=== PATIENT | male | born 1960 | race American Indian/Alaskan Native ===

== ENCOUNTER 2019-09-13 10:42 | Observation (INO) | payer MEDICARE ==
[2019-09-13] MEDS ORDERED: MORPHINE 4 MG/1 ML INJ IV ONE (11:22)
[2019-09-13] MEDS ORDERED: ONDANSETRON 4 MG/2 ML INJ IV ONE (11:22)
[2019-09-13] MEDS ORDERED: SODIUM CHLORIDE 0.9% 1000 ML 1,000 ML IV ONE (11:22)
[2019-09-13] MEDS ORDERED: NITROGLYCERIN 0.4 MG TAB SUBL SL PRN (11:22)
--- NOTE | 2019-09-13 11:47 | XRay Report ---
CHEST 2 VIEWS INDICATION / CLINICAL INFORMATION: Chest Pain. COMPARISON: October 01, 2009. FINDINGS: SUPPORT DEVICES: There is a left jugular permacath with the tip overlying the distal SVC. There is a left parasternal ICD. HEART / MEDIASTINUM: There is mild to moderate generalized cardiomegaly. There is mild chronic promin ence of the central pulmonary vessels. The aorta is normal in caliber. LUNGS / PLEURA: No significant pulmonary or pleural abnormality. No pneumothorax. ADDITIONAL FINDINGS: No significant additional findings. IMPRESSION: No acute findings. Signer Name: Jonnie Xiao MD Signed: 09/13/2019 11:43 AM Workstation Name: [id number]
[2019-09-13 12:38] LABS: Basophils % (Auto) 0.7 % (0.0-1.8); Eosinophils % (Auto) 0.1 % (0.0-4.3); Hematocrit 36.6 % (35.5-45.6); Hemoglobin 11.9 gm/dl (11.8-15.2); Lymphocytes # (Auto) 0.5 K/mm3 (1.2-5.4); Lymphocytes % (Auto) 8.9 % (13.4-35.0); Mean Corpuscular HGB Conc 32 % (32-34); Mean Corpuscular Volume 96 fl (84-94); Monocytes # (Auto) 0.2 K/mm3 (0.0-0.8); Monocytes % (Auto) 4.2 % (0.0-7.3); Platelet Count 138 K/mm3 (140-440); Red Blood Count 3.82 M/mm3 (3.65-5.03); Red Cell Distribution Width 17.4 % (13.2-15.2)
[2019-09-13 12:48] LABS: INR 1.27 (0.87-1.13)
[2019-09-13 12:49] LABS: Partial Thromboplastin Time 37.7 Sec. (24.2-36.6)
--- NOTE | 2019-09-13 13:16 | Emergency Department Report ---
<VALERIEEDIL - Last Filed: 09/13/19 13:20> ED Chest Pain HPI - General Chief Complaint: Chest Pain Stated Complaint: CHEST PAIN Time Seen by Provider: 09/13/19 11:19 - Related Data Home Medications Medication Instructions Recorded Confirmed Last Taken Aspirin [Adult Aspirin] 81 mg PO QDAY 09/13/19 09/13/19 Unknown Torsemide [Demadex] 100 mg PO QDAY 09/13/19 09/13/19 Unknown Allergies Allergy/AdvReac Type Severity Reaction Status Date / Time No Known Allergies Allergy Verified 09/13/19 11:22 ED Past Medical Hx - Medications Home Medications: Home Medications Medication Instructions Recorded Confirmed Last Taken Type Aspirin [Adult Aspirin] 81 mg PO QDAY 09/13/19 09/13/19 Unknown History Torsemide [Demadex] 100 mg PO QDAY 09/13/19 09/13/19 Unknown History ED Medical Decision Making - Lab Data Result diagrams: 09/13/19 12:08 Laboratory Results - last 24 hr 09/13/19 09/13/19 09/13/19 12:08 12:08 12:08 WBC 5.3 RBC 3.82 Hgb 11.9 Hct 36.6 MCV 96 H MCH 31 MCHC 32 RDW 17.4 H Plt Count 138 L Lymph % (Auto) 8.9 L [place] % (Auto) 4.2 Eos % (Auto) 0.1 Baso % (Auto) 0.7 Lymph # 0.5 L [place] # 0.2 Eos # 0.0 Baso # 0.0 Seg Neutrophils % 86.1 H Seg Neutrophils # 4.5 PT 16.1 H INR 1.27 H APTT 37.7 H D-Dimer 1894.75 H Blood Type A POSITIVE ED Disposition Clinical Impression: Uncontrolled hypertension, Shortness of breath, End stage renal disease, Angina at rest Chest pain Qualifiers: Chest pain type: unspecified Qualified Code(s): R07.9 - Chest pain, unspecified CHF exacerbation Qualifiers: Heart failure type: unspecified Qualified Code(s): I50.9 - Heart failure, unspecified Disposition: OP ADMIT IP TO THIS HOSP Condition: Stable <PANCHITO SERVIN - Last Filed: 09/13/19 15:11> ED Chest Pain HPI - General Source: patient Mode of arrival: Stretcher Limitations: No Limitations - History of Present Illness Initial Comments: This is a 58-year-old male nontoxic, well nourished in appearance, no acute signs of distress presents to the ED with c/o of left sided chest pain with SOB. Stated pain radiates to left shoulder and back area. Describes pain as tightness and heaviness in chest. Patient denies any upper respiratory symptoms. Patient denies any hemoptysis, fever, chills, nausea, vomiting, headache, st iff neck, numbness, tingling, abdominal pain. Patient denies any recent travels or long car rides. Patient denies any recent surgeries or any sick contacts. Patient denies any drug allergies. Past medical history includes CHF, VT, and ESRD. MD Complaint: chest pain -: days(s) Pain Location: left chest Pain Radiation: LUE, back Severity: moderate Severity scale (0 -10): 8 Quality: tightness, heaviness Consistency: constant Improves With: nothing Worsens With: nothing re: dyspnea. denies: nausea, vomting, diaphoresis, sense of impending doom Other Symptoms: denies: cough, fever, syncope, rash, acid taste in mouth, leg swelling, palpitations, burping Heart Score - HEART Score History: Highly suspicious EKG: Non-specific Age: 45-65 Risk factors: > 3 risk factors or hx of atherosclerotic disease Troponin: > 3x normal limit HEART Score: 8 - Critical Actions Critical Actions: >7 pts:50-65% risk of adverse cardiac event. Early invasive measures ED Review of Systems ROS: Stated complaint: CHEST PAIN Other details as noted in HPI Constitutional: denies: chills, fever Eyes: denies: eye pain, eye discharge, vision change ENT: denies: ear pain, throat pain Respiratory: shortness of breath. denies: cough, wheezing Cardiovascular: chest pain. denies: palpitations Endocrine: no symptoms reported Gastrointestinal: denies: abdominal pain, nausea, diarrhea Genitourinary: denies: urgency, dysuria Musculoskeletal: denies: back pain, joint swelling, arthralgia Skin: denies: rash, lesions Neurological: denies: headache, weakness, paresthesias Psychiatric: denies: anxiety, depression Hematological/Lymphatic: denies: easy bleeding, easy bruising ED Past Medical Hx - Past Medical History Previous Medical History?: Yes Hx Hypertension: Yes Hx Heart Attack/AMI: Yes Hx Congestive Heart Failure: Yes Hx Renal Disease: Yes (Dialysis T, Th, Sat) Additional medical history: Pacemaker, - Surgical History Past Surgical History?: No - Social History Smoking Status: Current Every Day Smoker Substance Use Type: None ED Physical Exam - General Limitations: No Limitations General appearance: alert, in no apparent distress - Head Head exam: Present: atraumatic, normocephalic - Neck Neck exam: Present: normal inspection, full ROM - Respiratory Respiratory exam: Present: normal lung sounds bilaterally. Absent: respiratory distress, wheezes, rales, rhonchi, stridor, chest wall tenderness, accessory muscle use, decreased breath sounds, prolonged expiratory - Cardiovascular Cardiovascular Exam: Present: tachycardia - GI/Abdominal GI/Abdominal exam: Present: soft, normal bowel sounds. Absent: distended, tenderness, guarding, pulsatile mass - Extremities Exam Extremities exam: Present: full ROM - Back Exam Back exam: Present: full ROM - Neurological Exam Neurological exam: Present: alert, oriented X3 - Psychiatric Psychiatric exam: Present: normal affect, normal mood - Skin Skin exam: Present: warm, dry, intact, normal color. Absent: rash ED Course Vital Signs 09/13/19 09/13/19 09/13/19 10:55 11:00 11:04 Temperature 97.8 F Pulse Rate 92 H 90 92 H Respiratory 16 18 21 Rate Blood Pressure Blood Pressure 181/112 [Right] O2 Sat by Pulse 97 98 Oximetry 09/13/19 09/13/19 09/13/19 11:15 11:34 11:46 Temperature Pulse Rate 89 Respiratory 20 Rate Blood Pressure 175/114 175/114 175/114 Blood Pressure [Right] O2 Sat by Pulse 89 99 Oximetry 09/13/19 09/13/19 09/13/19 12:00 12:16 12:25 Temperature Pulse Rate Respiratory 20 Rate Blood Pressure 175/114 175/114 Blood Pressure [Right] O2 Sat by Pulse 100 98 Oximetry 09/13/19 09/13/19 09/13/19 12:30 12:46 12:55 Temperature Pulse Rate Respiratory 18 Rate Blood Pressure 175/114 175/114 Blood Pressure [Right] O2 Sat by Pulse 79 L 88 Oximetry 09/13/19 09/13/19 09/13/19 13:00 13:16 13:30 Temperature Pulse Rate Respiratory Rate Blood Pressure 175/114 175/114 175/114 Blood Pressure [Right] O2 Sat by Pulse 96 81 L 98 Oximetry 09/13/19 09/13/19 09/13/19 14:02 14:09 14:15 Temperature Pulse Rate 84 75 Respiratory 13 Rate Blood Pressure 175/114 160/104 141/97 Blood Pressure [Right] O2 Sat by Pulse 96 98 Oximetry 09/13/19 09/13/19 09/13/19 14:30 14:46 15:00 Temperature Pulse Rate 75 76 76 Respiratory 18 21 13 Rate Blood Pressure 133/93 134/83 142/94 Blood Pressure [Right] O2 Sat by Pulse 98 99 99 Oximetry - Reevaluation(s) Reevaluation #1: 09/13/19 13:15 Patient is speaking in full sentences with no signs of distress noted. - Consultations Consultation #1: 09/13/19 13:28 Patient has been consulted with Laith Petty about patient history, physical exam, and labs and agrees to ED plan of care with admission. BACILIO score - Bacilio Score Age > 65: (0) No Aspirin use within the Past 7 Days: (1) Yes 3 or more CAD Risk Factors: (1) Yes 2 or more Angina events in past 24 hrs: (1) Yes Known CAD with more than 50% Stenosis: (1) Yes Elevated Cardiac Markers: (0) No ST Deviation Greater than 0.5mm: (0) No BACILIO Score: 4 ED Medical Decision Making - Lab Data Result diagrams: 09/13/19 12:08 09/13/19 12:08 - Medical Decision Making This is a 58-year-old male that presents with chest pain and shortness of jani ath. Patient is currently stable and was examined by me and Dr. Walker. Labs obtained. CTA of chest has been obtained. Patient to be dialyzed later today due to contrast used for CTA. Patient is admitted with Dr. Gan (hospitalist). At time of admission, the patient does not seem toxic or ill in appearance. No acute signs of distress noted. Patient agrees to admission treatment plan of care. No further questions noted by the patient. - Differential Diagnosis PE, STEMI, NSTEMI, uncontrolledhypertension, pneumonia, atypical chest pain Critical care attestation.: If time is entered above; I have spent that time in minutes in the direct care of this critically ill patient, excluding procedure time. ED Disposition Is pt being admited?: Yes
--- NOTE | 2019-09-13 14:11 | Nuclear Medicine Report ---
V/Q Scan HISTORY: cp/sob. TECHNIQUE: Patient was given 5.5 mCi of technetium MAA and 17.9 mCi of xenon 133. COMPARISON: Chest x-ray from today FINDINGS: No appreciable mismatch between ventilation and perfusion imaging. IMPRESSION: Low probability for PTE. Signer Name: Paul Kingsley MD Signed: 09/13/2019 2:06 PM Workstation Name: [id number]
[2019-09-13 14:13] LABS: Albumin 4.3 g/dL (3.9-5); Calcium 9.6 mg/dL (8.4-10.2)
[2019-09-13 14:30] LABS: Chol/HDL Ratio 1.69 %
--- NOTE | 2019-09-13 15:49 | Consultation ---
History of Present Illness Consult date: 09/13/19 Consult reason: elevated troponin History of present illness: This is a 58-year old male with a history of coronary artery disease, ischemic cardiomyopathy and has an subcutaneous cardiac defibrillator. Patient also has end stage renal disease and is on dialysis. He presents to the emergency department with complaints of chest pain. Patient admits compliance with plavix and aspirin. A list of his medications shows he is also taking amiodarone for unclear tachyarrhythmia. Ventilation perfusion scan reports low probability for PE. A chest x-ray reports no interstitial edema. Labs shows elevated troponin, likely in the setting of renal failure. Creatinine of 10.9. An ECG is sinus rhythm, no acute ischemic changes. A cardiac consultation has been requested for further evaluation of chest pain. Medications and Allergies Allergies Allergy/AdvReac Type Severity Reaction Status Date / Time No Known Allergies Allergy Verified 09/13/19 11:22 Home Medications Medication Instructions Recorded Confirmed Last Taken Type Aspirin [Adult Aspirin] 81 mg PO QDAY 09/13/19 09/13/19 Unknown History Torsemide [Demadex] 100 mg PO QDAY 09/13/19 09/13/19 Unknown History Active Meds: Active Medications Nitroglycerin (Nitrostat) 0.4 mg SL .Q5MIN PRN PRN Reason: Chest Pain Physical Examination Vital Signs Pulse Resp 92 H 16 09/13/19 10:55 09/13/19 10:55 General appearance: no acute distress HEENT: Positive: PERRL Neck: Positive: trachea midline Cardiac: Positive: Reg Rate and Rhythm Lungs: Positive: Decreased Breath Sounds Neuro: Positive: Grossly Intact Results 09/13/19 12:08 09/13/19 12:08 Cardiac Enzymes 09/13/19 Range/Units 12:08 AST 16 (5-40) units/L Coagulation 09/13/19 Range/Units 12:08 PT 16.1 H (12.2-14.9) Sec. INR 1.27 H (0.87-1.13) APTT 37.7 H (24.2-36.6) Sec. Lipids 09/13/19 Range/Units 12:08 Triglycerides 48 (2-149) mg/dL Cholesterol 90 (50-199) mg/dL HDL Cholesterol 53 (40-59) mg/dL Cholesterol/HDL Ratio 1.69 % CBC 09/13/19 Range/Units 12:08 WBC 5.3 (4.5-11.0) K/mm3 RBC 3.82 (3.65-5.03) M/mm3 Hgb 11.9 (11.8-15.2) gm/dl Hct 36.6 (35.5-45.6) % Plt Count 138 L (140-440) K/mm3 Lymph # 0.5 L (1.2-5.4) K/mm3 [place] # 0.2 (0.0-0.8) K/mm3 Eos # 0.0 (0.0-0.4) K/mm3 Baso # 0.0 (0.0-0.1) K/mm3 Comprehensive Metabolic Panel 09/13/19 Range/Units 12:08 Sodium 143 (137-145) mmol/L Potassium 4.4 (3.6-5.0) mmol/L Chloride 97.9 L (98-107) mmol/L Carbon Dioxide 22 (22-30) mmol/L BUN 72 H (9-20) mg/dL Creatinine 10.9 H (0.8-1.5) mg/dL Glucose 91 (75-100) mg/dL Calcium 9.6 (8.4-10.2) mg/dL AST 16 (5-40) units/L ALT 25 (7-56) units/L Alkaline Phosphatase 127 (35-129) units/L Total Protein 7.6 (6.3-8.2) g/dL Albumin 4.3 (3.9-5) g/dL Assessment and Plan Chest pain Elevated troponin in the setting of renal failure Hx of coronary artery disease Hx of ischemic cardiomyopathy Presence of subcutaneous cardiac defibrillator End stage renal disease on dialysis Hypertension Obtain records from [place] for cardiac review. Resume home medications. Further evaluation depends on clinical course.
[2019-09-13] MEDS ORDERED: ONDANSETRON 4 MG/2 ML INJ IV PRN (18:47)
[2019-09-13] MEDS ORDERED: HYDROmorphone 1 MG/1 ML INJ IV PRN (18:47)
[2019-09-13] MEDS ORDERED: oxyCODONE /ACETAMINOPHEN 5-325MG TAB PO PRN (18:47)
[2019-09-13] MEDS ORDERED: ACETAMINOPHEN 325 MG TAB PO PRN (18:47)
--- NOTE | 2019-09-13 18:50 | History and Physical Report ---
History of Present Illness Date of examination: 09/13/19 Medications and Allergies Allergies Allergy/AdvReac Type Severity Reaction Status Date / Time No Known Allergies Allergy Verified 09/13/19 16:34 Home Medications Medication Instructions Recorded Confirmed Last Taken Type Aspirin [Adult Aspirin] 81 mg PO QDAY 09/13/19 09/13/19 Unknown History Torsemide [Demadex] 100 mg PO QDAY 09/13/19 09/13/19 Unknown History Active Meds: Active Medications Amiodarone HCl (Cordarone) 200 mg PO QDAY DENISHA Aspirin (Aspirin) 81 mg PO QDAY DENISHA Atorvastatin Calcium (Lipitor) 80 mg PO QHS DENISHA Carvedilol (Coreg) 12.5 mg PO BID DENISHA Clopidogrel Bisulfate (Plavix) 75 mg PO QDAY DENISHA Nitroglycerin (Nitrostat) 0.4 mg SL .Q5MIN PRN PRN Reason: Chest Pain Exam - Constitutional Vitals: Temp Pulse Resp BP Pulse Ox 97.8 F 80 13 107/63 97 09/13/19 11:04 09/13/19 17:30 09/13/19 17:30 09/13/19 18:15 09/13/19 18:15 DARLENE score - Darlene Score Age > 65: (0) No Aspirin use within the Past 7 Days: (1) Yes 3 or more CAD Risk Factors: (1) Yes 2 or more Angina events in past 24 hrs: (1) Yes Known CAD with more than 50% Stenosis: (1) Yes Elevated Cardiac Markers: (0) No ST Deviation Greater than 0.5mm: (0) No DARLENE Score: 4 Results - Labs CBC & Chem 7: 09/13/19 12:08 09/13/19 12:08 Labs: Laboratory Last Values WBC 5.3 K/mm3 (4.5-11.0) 09/13/19 12:08 RBC 3.82 M/mm3 (3.65-5.03) 09/13/19 12:08 Hgb 11.9 gm/dl (11.8-15.2) 09/13/19 12:08 Hct 36.6 % (35.5-45.6) 09/13/19 12:08 MCV 96 fl (84-94) H 09/13/19 12:08 MCH 31 pg (28-32) 09/13/19 12:08 MCHC 32 % (32-34) 09/13/19 12:08 RDW 17.4 % (13.2-15.2) H 09/13/19 12:08 Plt Count 138 K/mm3 (140-440) L 09/13/19 12:08 Lymph % (Auto) 8.9 % (13.4-35.0) L 09/13/19 12:08 [place] % (Auto) 4.2 % (0.0-7.3) 09/13/19 12:08 Eos % (Auto) 0.1 % (0.0-4.3) 09/13/19 12:08 Baso % (Auto) 0.7 % (0.0-1.8) 09/13/19 12:08 Lymph # 0.5 K/mm3 (1.2-5.4) L 09/13/19 12:08 [place] # 0.2 K/mm3 (0.0-0.8) 09/13/19 12:08 Eos # 0.0 K/mm3 (0.0-0.4) 09/13/19 12:08 Baso # 0.0 K/mm3 (0.0-0.1) 09/13/19 12:08 Seg Neutrophils % 86.1 % (40.0-70.0) H 09/13/19 12:08 Seg Neutrophils # 4.5 K/mm3 (1.8-7.7) 09/13/19 12:08 PT 16.1 Sec. (12.2-14.9) H 09/13/19 12:08 INR 1.27 (0.87-1.13) H 09/13/19 12:08 APTT 37.7 Sec. (24.2-36.6) H 09/13/19 12:08 D-Dimer 1894.75 ng/mlDDU (0-234) H 09/13/19 12:08 Sodium 143 mmol/L (137-145) 09/13/19 12:08 Potassium 4.4 mmol/L (3.6-5.0) 09/13/19 12:08 Chloride 97.9 mmol/L (98-107) L 09/13/19 12:08 Carbon Dioxide 22 mmol/L (22-30) 09/13/19 12:08 Anion Gap 28 mmol/L 09/13/19 12:08 BUN 72 mg/dL (9-20) H 09/13/19 12:08 Creatinine 10.9 mg/dL (0.8-1.5) H 09/13/19 12:08 Estimated GFR 6 ml/min 09/13/19 12:08 BUN/Creatinine Ratio 7 % 09/13/19 12:08 Glucose 91 mg/dL (75-100) 09/13/19 12:08 Calcium 9.6 mg/dL (8.4-10.2) 09/13/19 12:08 Total Bilirubin 0.50 mg/dL (0.1-1.2) 09/13/19 12:08 AST 16 units/L (5-40) 09/13/19 12:08 ALT 25 units/L (7-56) 09/13/19 12:08 Alkaline Phosphatase 127 units/L (35-129) 09/13/19 12:08 Troponin T 0.229 ng/mL (0.00-0.029) H* 09/13/19 14:28 NT-Pro-B Natriuret Pep 30937 pg/mL (0-900) H 09/13/19 12:08 Total Protein 7.6 g/dL (6.3-8.2) 09/13/19 12:08 Albumin 4.3 g/dL (3.9-5) 09/13/19 12:08 Albumin/Globulin Ratio 1.3 % 09/13/19 12:08 Triglycerides 48 mg/dL (2-149) 09/13/19 12:08 Cholesterol 90 mg/dL (50-199) 09/13/19 12:08 LDL Cholesterol Direct 34 mg/dL (50-130) L 09/13/19 12:08 HDL Cholesterol 53 mg/dL (40-59) 09/13/19 12:08 Cholesterol/HDL Ratio 1.69 % 09/13/19 12:08 Blood Type A POSITIVE 09/13/19 12:08 Antibody Screen Negative 09/13/19 12:08
[2019-09-13] MEDS: carvediloL 12.5 MG TAB PO SCH (21:54)
[2019-09-13] MEDS: TORSEMIDE 100 MG TAB PO SCH (22:40)
[2019-09-14 05:28] LABS: Basophils # (Auto) 0.1 K/mm3 (0.0-0.1); Basophils % (Auto) 1.3 % (0.0-1.8); Eosinophils # (Auto) 0.1 K/mm3 (0.0-0.4); Eosinophils % (Auto) 2.9 % (0.0-4.3); Hematocrit 33.2 % (35.5-45.6); Lymphocytes % (Auto) 24.3 % (13.4-35.0); Mean Corpuscular HGB Conc 33 % (32-34); Mean Corpuscular Volume 95 fl (84-94); Monocytes # (Auto) 0.5 K/mm3 (0.0-0.8); Monocytes % (Auto) 12.7 % (0.0-7.3); Platelet Count 118 K/mm3 (140-440); Red Blood Count 3.49 M/mm3 (3.65-5.03); Red Cell Distribution Width 16.7 % (13.2-15.2)
[2019-09-14 05:55] LABS: Albumin 3.6 g/dL (3.9-5); Calcium 8.8 mg/dL (8.4-10.2)
--- NOTE | 2019-09-14 05:57 | Event Note ---
Date: 09/13/19 CHF exacerbation Elevated Troponin ESRD See H/p in reports
[2019-09-14 06:49] LABS: Bacteria,Urine 2+ /HPF (Negative); Bilirubin,Urine NEG (Negative); Blood,Urine LG (Negative); Color,Urine Yellow (Yellow); Mucus,Urine FEW /HPF; Urobilinogen,Urine < 2.0 mg/dL (<2.0)
[2019-09-14 06:50] LABS: RBC,Urine > 182.0 /HPF (0.0-6.0); WBC,Urine > 182.0 /HPF (0.0-6.0)
--- NOTE | 2019-09-14 07:04 | History and Physical Report ---
CHIEF COMPLAINT: Left-sided chest pain since morning. HISTORY OF PRESENT ILLNESS: A 58-year-old male with end-stage renal disease and congestive heart failure, comes in for left-sided chest pain, which is retrosternal, nonradiating. No diaphoresis, no palpitations and no radiation. No exacerbating or relieving factors. Chest pain is about 5 on a scale of 1-10. Dull to sharp in nature. Also, has shortness of breath on minimal exertion and orthopnea. PAST MEDICAL HISTORY: Significant for end-stage renal disease, hypertension, congestive heart failure and cardiomyopathy. PAST SURGICAL HISTORY: AV fistula. FAMILY HISTORY: Hypertension. SOCIAL HISTORY: No alcohol or recreational drugs. REVIEW OF SYSTEMS: Significant for chest pain and shortness of breath on minimal exertion. Otherwise, review of systems negative. The patient has orthopnea. PHYSICAL EXAMINATION: GENERAL: Young middle-aged male. VITAL SIGNS: Blood pressure 121/78; temperature 98.1; pulse 80; respirations 14; sats 100%, this dropped down to 79 and then became normal as is 95 and 91. HEENT: Unremarkable. Pupils equal and reactive. NECK: Supple, no lymphadenopathy, no thyromegaly. LUNGS: Clear to auscultation and percussion. Good air entry. CARDIOVASCULAR: S1, S2 heard. No gallop, no murmur, no rub. Apical impulse in left fifth intercostal space and midclavicular line. ABDOMEN: Soft and benign. No hepatosplenomegaly. No guarding, no rigidity. Hernial orifices are normal. EXTREMITIES: Good pedal pulses. No pedal edema. CENTRAL NERVOUS SYSTEM: Alert and oriented x 4, nonfocal exam. LABORATORY DATA: White count is 5300, H and H is 11.9 and 36.6, platelet count is 138,000. D-dimer is 1894. Troponin is 0.229 and 0.243. BUN and creatinine is 72 and 10.9. Electrolytes are otherwise normal. Cholesterol is 90. EKG shows sinus rhythm, ventricular premature complexes, LVH with secondary repolarization abnormalities, heart rate of 88 per minute. Chest x-ray shows pulmonary venous congestion, mild, but as per Radiology, no acute findings. Pulmonary perfusion imaging shows no acute PE, low probability for pulmonary embolism. ASSESSMENT AND PLAN: 1. Chest pain, rule out myocardial infarction protocol. Cardiology was consulted. The patient apparently had a coronary stent placement one year ago. The records of which are not available. The patient also had a defibrillator for primary prevention. As per telephone recorder, they will do the Lexiscan thallium stress tests before discharge if necessary. We will trend the troponins. Symptomatic treatment for chest pain. 2. Congestive heart failure exacerbation. The patient to get emergent hemodialysis for increased ultrafiltration. 3. End-stage renal disease. Continue hemodialysis. Consult ordered for Dr. 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 4. Type 2 diabetes, coverage and A1c. 5. Hyperlipidemia. Continue atorvastatin 80 mg daily. 6. Coronary artery disease. Continue Plavix. 7. Hypertension. Continue antihypertensives. 8. Deep venous thrombosis prophylaxis. Heparin 5000 q. 12. In summary, the patient has elevated troponins, CHF exacerbation, volume overload, end-stage renal disease, hypertension and hyperlipidemia. The patient will be admitted for elevated troponins and cardiomyopathy and CHF exacerbation. The patient will be admitted in inpatient status because of the CHF exacerbation and also end-stage renal disease, on hemodialysis and volume overload. DISCHARGE PLANNING ISSUES: Probable discharge in 48-72 hours after optimizing his CHF and following the Cardiology consult. Advance care planning. The patient is full code. Discussion was initiated. JOB# [id number] SHAYAN/DG GOLDMAN
[2019-09-14] MEDS: carvediloL 12.5 MG TAB PO SCH (09:13)
[2019-09-14] MEDS: TORSEMIDE 100 MG TAB PO SCH (09:14)
[2019-09-14] MEDS ORDERED: SODIUM CHLORIDE 0.9% 100 ML IV PRN ×2 (09:58→11:30)
[2019-09-14] MEDS ORDERED: ASPIRIN EC 81 MG TAB PO SCH (10:00)
[2019-09-14] MEDS ORDERED: ASPIRIN 325 MG TAB PO SCH (10:00)
[2019-09-14] MEDS ORDERED: CLOPIDOGREL 75 MG TAB PO SCH (10:00)
[2019-09-14] MEDS ORDERED: AMIODARONE 200 MG TAB PO SCH (10:00)
--- NOTE | 2019-09-14 10:16 | Discharge Summary ---
Providers - Providers Date of Admission: 09/13/19 18:28 Date of discharge: 09/14/19 Attending physician: JEB DICKENS 09/13/19 14:55 Consult to Physician [CONS] Urgent Comment: Consulting Provider: LUIS FARR Physician Instructions: Reason For Exam: CP, elevated trop 09/13/19 18:51 Consult to Physician [CONS] Routine Comment: Consulting Provider: ELÍAS ZHU Physician Instructions: Reason For Exam: Volume overload Primary care physician: DEBEAKER Hospitalization Condition: Stable Hospital course: Patient was seen and examined. Follow-up on current diagnosis chest pains which he denies. Overnight uneventful. Patient denies any chest pain, shortness of breath, nausea/vomiting or severe headaches. Imaging, nursing note, chart, labs and old chart reviewed. Discussed with patient. Patient is a 58 yo man with history of ESRD on HD, CAD, ICMP, hypertension and AICD who presents w/ chest pains. Chest pains, angina: Patient refuses stress test, extensive counseling done including and significant disability, He retorts that he had just had a stress test in May at [facility] and will return there if any more chest pains ESRD on HD Elevated troponin: In the setting of renal failure Hx of coronary artery disease Hx of ischemic cardiomyopathy Presence of subcutaneous cardiac defibrillator He refuses to stay, he have pre-op at [facility] at 2pm to repair his left arm AVG/graft. He had tunnel left chest wall HD cath Disposition: DC-01 TO HOME OR SELFCARE Time spent for discharge: 32 minutes Core Measure Documentation - Palliative Care Palliative Care/ Comfort Measures: Not Applicable - Core Measures Any of the following diagnoses?: none - VTE Discharge Requirements Deep Vein Thrombosis/Pulmonary Embolism Present on Admission: No Has pt received <5 days of overlap therapy or INR<2.0: No Anticoagulant overlap therapy prescribed at discharge: No Contraindication No Overlap Therapy order at DC: Not Indicated Exam - Physical Exam Narrative exam: GEN: WDWN, NAD, Awake, Alert, Orientated HEENT: NCAT, EOMI, PERRL, OP Clear NECK: supple, no adenopathy, no thyromegaly, no JVD CVS/HEART: RRR, normal S1S2, pulses present bilaterally CHEST/LUNGS: CTA B, Symmetrical chest expansion, good air entry bilaterally GI/Abdomen: soft, NTND, good bowel sounds, no guarding or rebound /Bladder: no suprapubic tenderness, no CVA or paraspinal tenderness EXT/Skin: no c/c/e, no obvious rash MSK: FROM x 4 Neuro: CN 2-12 grossly intact, no new focal deficits Psych: calm - Constitutional Vitals: Temp Pulse Resp BP Pulse Ox 98.0 F 74 18 147/91 94 09/14/19 07:45 09/14/19 09:13 09/14/19 07:45 09/14/19 09:13 09/14/19 07:45 Plan Activity: other (no strenous activity unless cleared by your [facility] [employer]) Diet: renal Follow up with: [facility] [Outside] - 09/14/19 2:00 pm
[2019-09-14 11:01] LABS: Hepatitis B Surface Antigen Non-Reactive (Negative); Hepatitis C Virus Antibody Non-Reactive (NonReactive)
--- NOTE | 2019-09-14 12:12 | Progress Note ---
Assessment and Plan Chest pain Elevated troponin in the setting of renal failure Hx of coronary artery disease Hx of ischemic cardiomyopathy Presence of subcutaneous cardiac defibrillator End stage renal disease on dialysis Hypertension Patient declines inpatient cardiac workup and wants to follow up with his primary generator worker at [place]. Continue medical therapy for coronary artery disease and ischemic cardiomyoapthy. Subjective Date of service: 09/14/19 Interval history: Patient declines inpatient cardiac workup and wants to discharge home. Objective Vital Signs Temp Pulse Resp BP BP Pulse Ox 09/14/19 11:00 58 L 133/69 09/14/19 10:45 60 135/70 09/14/19 10:35 63 141/81 09/14/19 10:30 98.2 F 61 18 126/69 09/14/19 09:13 74 147/91 09/14/19 07:45 98.0 F 74 18 147/91 94 09/14/19 04:40 98.0 F 68 18 134/91 92 09/14/19 00:37 98.1 F 75 18 97/55 91 09/13/19 22:04 98.1 F 81 18 143/95 95 09/13/19 20:26 77 09/13/19 20:00 79 18 121/78 79 L 09/13/19 19:50 80 14 121/78 100 09/13/19 19:40 80 17 136/89 85 09/13/19 19:30 97.9 F 82 13 123/76 123/76 91 09/13/19 19:20 123/76 97 09/13/19 19:14 112/65 100 09/13/19 19:09 116/69 99 09/13/19 19:00 116/69 97 09/13/19 18:45 112/65 98 09/13/19 18:30 106/68 97 09/13/19 18:15 107/63 97 09/13/19 18:00 135/84 92 09/13/19 17:46 126/87 98 09/13/19 17:30 80 13 129/87 97 09/13/19 17:15 78 13 129/87 100 09/13/19 17:00 80 11 L 127/82 98 09/13/19 16:45 81 17 130/80 98 09/13/19 16:30 79 14 143/90 97 09/13/19 16:15 78 14 137/94 100 09/13/19 16:00 78 16 148/99 09/13/19 15:46 78 13 142/90 100 09/13/19 15:30 77 12 142/90 100 09/13/19 15:15 77 14 142/94 100 09/13/19 15:00 76 13 142/94 99 09/13/19 14:46 76 21 134/83 99 09/13/19 14:30 75 18 133/93 98 09/13/19 14:15 75 13 141/97 98 09/13/19 14:09 84 160/104 09/13/19 14:02 175/114 96 09/13/19 13:30 175/114 98 09/13/19 13:16 175/114 81 L 09/13/19 13:00 175/114 96 09/13/19 12:55 18 09/13/19 12:46 175/114 88 09/13/19 12:30 175/114 79 L 09/13/19 12:25 20 09/13/19 12:16 175/114 98 - Physical Examination HEENT: Positive: PERRL Neck: Positive: trachea midline Neuro: Positive: Grossly Intact - Labs and Meds Cardiac Enzymes 09/13/19 09/14/19 Range/Units 12:08 05:06 AST 16 11 (5-40) units/L Coagulation 09/13/19 Range/Units 12:08 PT 16.1 H (12.2-14.9) Sec. INR 1.27 H (0.87-1.13) APTT 37.7 H (24.2-36.6) Sec. Lipids 09/13/19 Range/Units 12:08 Triglycerides 48 (2-149) mg/dL Cholesterol 90 (50-199) mg/dL HDL Cholesterol 53 (40-59) mg/dL Cholesterol/HDL Ratio 1.69 % CBC 09/13/19 09/14/19 Range/Units 12:08 05:06 WBC 5.3 4.2 L (4.5-11.0) K/mm3 RBC 3.82 3.49 L (3.65-5.03) M/mm3 Hgb 11.9 11.0 L (11.8-15.2) gm/dl Hct 36.6 33.2 L (35.5-45.6) % Plt Count 138 L 118 L (140-440) K/mm3 Lymph # 0.5 L 1.0 L (1.2-5.4) K/mm3 [place] # 0.2 0.5 (0.0-0.8) K/mm3 Eos # 0.0 0.1 (0.0-0.4) K/mm3 Baso # 0.0 0.1 (0.0-0.1) K/mm3 Comprehensive Metabolic Panel 09/13/19 09/14/19 Range/Units 12:08 05:06 Sodium 143 141 (137-145) mmol/L Potassium 4.4 4.3 (3.6-5.0) mmol/L Chloride 97.9 L 99.4 (98-107) mmol/L Carbon Dioxide 22 22 (22-30) mmol/L BUN 72 H 75 H (9-20) mg/dL Creatinine 10.9 H 12.3 H (0.8-1.5) mg/dL Glucose 91 94 (75-100) mg/dL Calcium 9.6 8.8 (8.4-10.2) mg/dL AST 16 11 (5-40) units/L ALT 25 17 (7-56) units/L Alkaline Phosphatase 127 104 (35-129) units/L Total Protein 7.6 6.5 (6.3-8.2) g/dL Albumin 4.3 3.6 L (3.9-5) g/dL
[2019-09-14 15:00] VITALS: BP 138/79
--- NOTE | 2019-09-14 15:19 | Consultation ---
History of Present Illness - Reason for Consult end stage renal disease - History of Present Illness Very pleasant 58 y/o AAM with PMHx of ESRD in the setting of DM, HTN, presented to the ED secondary to sudden onset of chest pain. He dialyzes on a TTS schedule, with last HD session on Wednesday. Nephrology consulted for chronic HD needs. Patient uses a RIJ permcath as his previous LUE AVF clotted. Pending placement of new vascular access. He has no chest pain at this time, and is pending discharge, to follow up with his framing manager at [place]. Past History Past Medical History: ESRD, hypertension, hyperlipidemia Past Surgical History: Other (RIJ permcath, LUE AVF creation ) Social history: no significant social history Medications and Allergies Allergies Allergy/AdvReac Type Severity Reaction Status Date / Time No Known Allergies Allergy Verified 09/13/19 16:34 Home Medications Medication Instructions Recorded Confirmed Last Taken Type Aspirin [Adult Aspirin] 81 mg PO QDAY 09/13/19 09/13/19 Unknown History Torsemide [Demadex] 100 mg PO QDAY 09/13/19 09/13/19 Unknown History Active Meds: Active Medications Acetaminophen (Tylenol) 650 mg PO Q4H PRN PRN Reason: Pain MILD(1-3)/Fever >100.5/VELASCO Amiodarone HCl (Cordarone) 200 mg PO QDAY [facility] Last Admin: 09/14/19 09:14 Dose: 200 mg Documented by: Aspirin (Halfprin Ec) 81 mg PO QDAY [facility] Last Admin: 09/14/19 09:13 Dose: 81 mg Documented by: Atorvastatin Calcium (Lipitor) 80 mg PO QHS [facility] Last Admin: 09/13/19 21:54 Dose: 80 mg Documented by: Carvedilol (Coreg) 12.5 mg PO BID [facility] Last Admin: 09/14/19 09:13 Dose: 12.5 mg Documented by: Clopidogrel Bisulfate (Plavix) 75 mg PO QDAY [facility] Last Admin: 09/14/19 09:13 Dose: 75 mg Documented by: Hydromorphone HCl (Dilaudid) 1 mg IV Q3H PRN PRN Reason: Pain , Severe (7-10) Sodium Chloride (Nacl 0.9%) 100 mls @ 999 mls/hr IV CASSIA PRN PRN Reason: Hypotension Nitroglycerin (Nitrostat) 0.4 mg SL .Q5MIN PRN PRN Reason: Chest Pain Ondansetron HCl (Zofran) 4 mg IV Q8H PRN PRN Reason: Nausea And Vomiting Oxycodone/Acetaminophen (Percocet 5/325) 1 tab PO Q6H PRN PRN Reason: Pain, Moderate (4-6) Sodium Chloride (Sodium Chloride Flush Syringe 10 Ml) 10 ml IV BID [facility] Last Admin: 09/14/19 09:15 Dose: 10 ml Documented by: Sodium Chloride (Sodium Chloride Flush Syringe 10 Ml) 10 ml IV PRN PRN PRN Reason: LINE FLUSH Torsemide (Demadex) 100 mg PO QDAY [facility] Last Admin: 09/14/19 09:14 Dose: 100 mg Documented by: Review of Systems All systems: negative Constitutional: fatigue Exam - Vital Signs Vital signs: Vital Signs Pulse Resp 92 H 16 09/13/19 10:55 09/13/19 10:55 - General Appearance General appearance: well-developed, well-nourished, appears stated age EENT: ATNC, PERRL Neck: Present: neck supple, trachea midline Respiratory: Clear to Ascultation, Normal Exam Heart: regular, S1S2 Gastrointestinal: Present: normal, normoactive bowel sounds Integumentary: no rash, warm and dry Neurologic: no focal deficit, alert and oriented x3 Musculoskeletal: Present: deferred Psychiatric: mood/affect appropriate, cooperative Results - Lab Results 09/14/19 05:06 09/14/19 05:06 Most recent lab results Calcium 8.8 mg/dL (8.4-10.2) 09/14/19 05:06 Assessment and Plan - Patient Problems (1) End stage renal disease Current Visit: Yes Status: Chronic Plan to address problem: Patient tolerated HD today per his TTS schedule, without any acute issues. Patient is clear for discharge from a renal standpoint. Needs to follow up with his outpatient HD unit/manager cargo. (2) Chest pain Current Visit: Yes Status: Acute Qualifiers: Chest pain type: unspecified Qualified Code(s): R07.9 - Chest pain, unspecified Plan to address problem: Chest pain has resolved at this time. Cardiology recommendations reviewed. Plans to follow up with his outpatient framing manager for further ischemic workup. (3) Hypertensive chronic kidney disease with stage 5 chronic kidney disease or end stage renal disease Current Visit: Yes Status: Chronic Plan to address problem: Continue on current regimen and monitor. (4) Secondary hyperparathyroidism (of renal origin) Current Visit: Yes Status: Chronic Plan to address problem: Continue on current home phosphate binder regimen. (5) Anemia in CKD (chronic kidney disease) Current Visit: Yes Status: Chronic Qualifiers: Chronic kidney disease stage: on chronic dialysis Qualified Code(s): N18.6 - End stage renal disease; D63.1 - Anemia in chronic kidney disease; Z99.2 - Dependence on renal dialysis Plan to address problem: Based on labs no acute needs for MARGE therapy at present.
== END 2019-09-14 15:43 | disposition home or self-care (01) ==
LOC: ED 10:42 → INTOOBSV 18:28 → 4A 18:28
PROVIDERS: ADMIT Internal Medicine; ATTEND Internal Medicine
DX: I13.2 Hypertensive heart and chronic kidney disease with heart failure and with stage 5 chronic kidney disease, or end stage renal disease (principal); E11.22 Type 2 diabetes mellitus with diabetic chronic kidney disease; I50.9 Heart failure, unspecified; N18.6 End stage renal disease; D63.1 Anemia in chronic kidney disease; E78.5 Hyperlipidemia, unspecified; I25.10 Atherosclerotic heart disease of native coronary artery without angina pectoris; R79.89 Other specified abnormal findings of blood chemistry; I25.5 Ischemic cardiomyopathy; N25.81 Secondary hyperparathyroidism of renal origin; Z99.2 Dependence on renal dialysis; Z79.82 Long term (current) use of aspirin; Z79.899 Other long term (current) drug therapy
CPT/HCPCS: 36415; 71046; 78582; 80053; 80061; 80074; 81001; 83036; 83880; 84484; 85025; 85379; 85610; 85730; 86850; 86900; 86901; 87116; 93005; 93010; 96374; 96375; 99284; A9270; A9540; A9558; G0378; J2270; J2405

== ENCOUNTER 2019-11-19 08:24 | Inpatient (IN) | payer MEDICARE ==
[2019-11-19] MEDS ORDERED: IBUPROFEN 800 MG TAB PO ONE (10:04)
[2019-11-19] MEDS ORDERED: oxyCODONE /ACETAMINOPHEN 5-325MG TAB PO ONE ×2 (10:04→11:07)
[2019-11-19] MEDS ORDERED: COLCHICINE 0.6 MG CAP PO ONE (10:04)
--- NOTE | 2019-11-19 10:13 | Emergency Department Report ---
ED General Adult HPI - General Chief complaint: Medical Clearance Stated complaint: GOUT Time Seen by Provider: 11/19/19 09:58 Source: patient Mode of arrival: Wheelchair Limitations: No Limitations - History of Present Illness Initial comments: Mr. Hagen is a 59 yo male with hx of CHF, ESRD, gout, HTN, MA who presents with bilateral feet pain and swelling for 2 weeks. He also desires to return to dialysis. He last dialysis session occurred on . Due to pain in feet unable to walk. Severe pain worse with ambulation. No trauma Has not had a gout flare in quite a while. He cannot recall the name of his sustainability coach. He receives dialysis at [facility]. -: Gradual, week(s) (2) Location: left, right, upper extremity, lower extremity Severity scale (0 -10): 7 Quality: aching Consistency: constant Improves with: none Worsens with: none Associated Symptoms: denies other symptoms - Related Data Home Medications Medication Instructions Recorded Confirmed Last Taken Aspirin [Adult Aspirin] 81 mg PO QDAY 09/13/19 11/19/19 Unknown Torsemide [Demadex] 100 mg PO QDAY 09/13/19 11/19/19 Unknown Amiodarone HCl [Amiodarone 100 MG 200 mg PO DAILY 11/19/19 11/19/19 Unknown TAB] Venlafaxine HCl [Venlafaxine HCl 75 mg PO DAILY 11/19/19 11/19/19 Unknown ER] carvediloL [Coreg] 12.5 mg PO BID 11/19/19 11/19/19 Unknown Allergies Allergy/AdvReac Type Severity Reaction Status Date / Time No Known Allergies Allergy Verified 09/13/19 16:34 ED Review of Systems ROS: Stated complaint: GOUT Other details as noted in HPI Comment: All other systems reviewed and negative Respiratory: denies: cough, shortness of breath Cardiovascular: denies: chest pain Gastrointestinal: denies: abdominal pain Neurological: denies: headache ED Past Medical Hx - Past Medical History Previous Medical History?: Yes Hx Hypertension: Yes Hx Heart Attack/AMI: Yes Hx Congestive Heart Failure: Yes Hx Diabetes: No Hx Renal Disease: Yes (Dialysis T, , Wed) Hx Asthma: No Hx COPD: No Additional medical history: Pacemaker, - Surgical History Past Surgical History?: Yes Additional Surgical History: Left upper extremity AV graft - Social History Smoking Status: Never Smoker Substance Use Type: None - Medications Home Medications: Home Medications Medication Instructions Recorded Confirmed Last Taken Type Aspirin [Adult Aspirin] 81 mg PO QDAY 09/13/19 11/19/19 Unknown History Torsemide [Demadex] 100 mg PO QDAY 09/13/19 11/19/19 Unknown History Amiodarone HCl [Amiodarone 100 MG 200 mg PO DAILY 11/19/19 11/19/19 Unknown History TAB] Venlafaxine HCl [Venlafaxine HCl 75 mg PO DAILY 11/19/19 11/19/19 Unknown History ER] carvediloL [Coreg] 12.5 mg PO BID 11/19/19 11/19/19 Unknown History ED Physical Exam - General Limitations: No Limitations General appearance: alert, other (Appears uncomfortable speaking with effort appears out of breath) - Head Head exam: Present: atraumatic, normocephalic - Eye Eye exam: Present: normal appearance - ENT ENT exam: Present: mucous membranes moist - Neck Neck exam: Present: normal inspection, full ROM - Respiratory Respiratory exam: Present: respiratory distress (Increased work of breathing tachypnea), rales, rhonchi - Cardiovascular Cardiovascular Exam: Present: regular rate, normal rhythm, normal heart sounds, other (Left chest: Vas-Cath dry bandage in place ). Absent: rubs, gallop - GI/Abdominal GI/Abdominal exam: Present: soft, normal bowel sounds. Absent: distended, tenderness, guarding, rebound - Extremities Exam Extremities exam: Present: other (Right foot: No erythema no edema left foot mild edema without deformity) - Back Exam Back exam: Present: normal inspection - Neurological Exam Neurological exam: Present: alert, oriented X3 - Psychiatric Psychiatric exam: Present: normal affect, normal mood - Skin Skin exam: Present: warm, dry, intact, normal color. Absent: rash ED Course Vital Signs 11/19/19 11/19/19 08:35 12:40 Temperature 97.9 F Pulse Rate 71 64 Respiratory 20 18 Rate Blood Pressure 148/100 Blood Pressure 149/106 [Right] O2 Sat by Pulse 100 100 Oximetry ED Medical Decision Making - Lab Data Result diagrams: 11/19/19 10:11 - EKG Data 11/19/19 12:03 EKG obtained 1158 NSR 65 bpm left axis prolonged QTC no ST elevation prolonged RI intervals nonspecific T wave pattern - Radiology Data Radiology results: report reviewed AP portable chest 1 view central vascular congestion with bibasilar atelectasis stable cardiomegaly - Medical Decision Making 1. Bilateral feet pain for 2 weeks with mild swelling of the left foot; patient states that he has a history of gout suspect pseudogout. Treated with colchicine NSAID analgesia in the emergency department. 2. Missed hemodialysis on yesterday. Dr Castellon will arrange HD which is indicated with work of breathing hyperkalemia, abnormal EKG (prolonged RI, QRS more so than previous EKG August 2019) Critical care attestation.: If time is entered above; I have spent that time in minutes in the direct care of this critically ill patient, excluding procedure time. ED Disposition Clinical Impression: Fluid overload, Gout attack, End stage renal disease Disposition: OP ADMIT IP TO THIS HOSP Is pt being admited?: Yes Does the pt Need Aspirin: No Condition: Stable
[2019-11-19 11:15] LABS: Calcium 6.6 mg/dL (8.4-10.2)
[2019-11-19] MEDS ORDERED: ACETAMINOPHEN 325 MG TAB PO PRN (12:00)
[2019-11-19] MEDS ORDERED: ONDANSETRON 4 MG/2 ML INJ IV PRN (12:00)
--- NOTE | 2019-11-19 12:00 | History and Physical Report ---
History of Present Illness Chief complaint: I need dialysis History of present illness: 59 YO Male with ESRD on HD(T,R,Sa) was last dialyzed on , CHF, HTN, [place], Gout presents to ED for evaluation. Patient states that he has experienced lower extremity edema, and pain in the joints of his feet over the past 2 weeks with worsening symptoms over the past 2 days. Patient acknowledges noncompliance with dialysis due to his bilateral foot pain which resulted in patient missing his Wednesday dialysis session. Patient also reports that he has experienced shortness of breath over the past 2 days. Patient transported to [facility] via private vehicle for further evaluation and care. Patient seen and evaluated in the emergency department. Lab and imaging studies reviewed. Patient found to have symptoms consistent with acute gout, as well as end-stage renal disease, fluid overload due to missed dialysis and hyperkalemia and is in need of dialysis at this time. Nephrology consult placed in the ED. Patient denies fever, chills, chest pain, palpitations, productive cough, muscle aches, skin rash, or known ill contacts. Patient placed in observation status and admitted to medical floor for further treatment and care due to increased risk of renal decompensation. Prior admission on 09/13/2019 reviewed. All medication listed at time of admission has been reconciled. Past History Past Medical History: ESRD, heart failure, hypertension Past Surgical History: Other (Left upper extremity AV fistula, pacemaker placement) Social history: . denies: smoking, alcohol abuse, prescription drug abuse Family history: diabetes, hypertension Medications and Allergies Allergies Allergy/AdvReac Type Severity Reaction Status Date / Time No Known Allergies Allergy Verified 09/13/19 16:34 Home Medications Medication Instructions Recorded Confirmed Last Taken Type Aspirin [Adult Aspirin] 81 mg PO QDAY 09/13/19 09/13/19 Unknown History Torsemide [Demadex] 100 mg PO QDAY 09/13/19 09/13/19 Unknown History Review of Systems Constitutional: weight gain, no weight loss, no fever, no chills Ears, nose, mouth and throat: no ear pain, no ear discharge, no tinnitis, no decreased hearing, no nose pain, no nasal congestion Cardiovascular: shortness of breath, no chest pain, no orthopnea, no palpitations, no rapid/irregular heart beat, no edema Respiratory: no cough, no cough with sputum, no excessive sputum Gastrointestinal: no abdominal pain, no nausea, no vomiting, no diarrhea, no constipation, no change in bowel habits Genitourinary Male: no hematuria, no flank pain, no discharge, no urinary frequency, no urinary hesitancy Rectal: no pain, no incontinence, no bleeding Musculoskeletal: no neck stiffness, no neck pain, no shooting arm pain, no arm numbness/tingling, no low back pain, no shooting leg pain Integumentary: no rash, no pruritis, no redness, no sores, no wounds Neurological: no head injury, no transient paralysis, no paralysis, no parathesias, no numbness, no tingling, no seizures, no syncope Psychiatric: no anxiety, no memory loss, no change in sleep habits, no insomnia, no change in appetite, no change in libido, no suicidal ideation Endocrine: no cold intolerance, no heat intolerance, no excessive thirst, no polydipsia, no polyuria, no nocturia, no excessive sweating Hematologic/Lymphatic: no easy bruising, no easy bleeding, no lymphadenopathy Allergic/Immunologic: no urticaria, no allergic rhinitis, no anaphylaxis, no angioedema Exam - Constitutional Vitals: Temp Pulse Resp BP Pulse Ox 97.9 F 71 20 148/100 100 11/19/19 08:35 11/19/19 08:35 11/19/19 08:35 11/19/19 08:35 11/19/19 08:35 General appearance: Present: mild distress - EENT Eyes: Present: PERRL ENT: hearing intact, clear oral mucosa - Neck Neck: Present: supple, normal ROM - Respiratory Respiratory effort: labored Respiratory: bilateral: diminished, rales - Cardiovascular Heart Sounds: Present: S1 & S2. Absent: rub, click - Extremities Extremities: pulses symmetrical Extremity abnormal: edema Peripheral Pulses: within normal limits - Abdominal General gastrointestinal: Present: soft, non-tender, non-distended, normal bowel sounds Male genitourinary: Present: normal - Integumentary Integumentary: Present: clear, warm, dry - Musculoskeletal Musculoskeletal: gait normal, strength equal bilaterally - Psychiatric Psychiatric: appropriate mood/affect, intact judgment & insight - Neurologic Neurologic: CNII-XII intact, moves all extremities Results - Labs CBC & Chem 7: 11/19/19 10:11 Labs: Abnormal lab results 11/19/19 Range/Units 10:11 Potassium 5.6 H (3.6-5.0) mmol/L BUN 86 H (9-20) mg/dL Creatinine 12.9 H (0.8-1.5) mg/dL Glucose 142 H (75-100) mg/dL Calcium 6.6 L (8.4-10.2) mg/dL Assessment and Plan - Patient Problems (1) End stage renal disease Current Visit: No Status: Chronic Plan to address problem: Nephrology consult placed in ED, strict I's/O, daily weight, monitor urine output every shift, avoid nephrotoxic agents, dialysis as per renal team. (2) Gout attack Current Visit: Yes Status: Acute Plan to address problem: Pain control, NSAID therapy as clinically indicated, supportive care. (3) Fluid overload Current Visit: Yes Status: Acute Plan to address problem: Dialysis as per renal team, monitor urine output every shift, strict I's/O, daily weight, supportive care (4) Noncompliance with renal dialysis Current Visit: Yes Status: Acute Plan to address problem: Patient counseled regarding noncompliance with dialysis. Patient informed of risk of worsening symptoms and even . Patient knowledges understanding instructions and reports that he will be more compliant with dialysis in the future (5) CHF (congestive heart failure) Current Visit: Yes Status: Acute Qualifiers: Heart failure chronicity: chronic Plan to address problem: Strict I's/O, daily weight, monitor urine output every shift, blood pressure control, afterload reduction, dialysis as per renal team, pulse oximetry, supplemental oxygen, nebulizer therapy. (6) Hyperkalemia Current Visit: Yes Status: Acute Plan to address problem: No EKG changes, calcium gluconate, Kayexalate, urgent dialysis as per renal team. (7) DVT prophylaxis Current Visit: Yes Status: Acute Plan to address problem: SCD to bilateral lower extremities while in bed, patient is ambulatory.
[2019-11-19] MEDS ORDERED: hydrALAZINE 20 MG/1 ML INJ IV PRN (12:28)
--- NOTE | 2019-11-19 12:30 | XRay Report ---
CHEST 1 VIEW 11/19/2019 11:59 AM INDICATION / CLINICAL INFORMATION: dyspnea. COMPARISON: 2 views of the chest from 09/13/2019. FINDINGS: SUPPORT DEVICES: Stable left internal jugular vein PermCath and ICD. HEART / MEDIASTINUM: Stable. LUNGS / PLEURA: There is central vascular congestion with probable bibasilar atelectasis. No signific ant pleural effusion. No pneumothorax. ADDITIONAL FINDINGS: No significant additional findings. IMPRESSION: 1. Central vascular congestion with probable bibasilar atelectasis. 2. Stable cardiomegaly. Signer Name: Aamir Ayon MD Signed: 11/19/2019 12:26 PM Workstation Name: [id number]
[2019-11-19] MEDS ORDERED: CALCIUM GLUCONATE 1,000 MG in SODIUM CHLORIDE 0.9% 100 ML IV ONE (13:00)
[2019-11-19] MEDS ORDERED: SODIUM POLYSTYRENE 15 GM/60 ML ORAL LIQD PO ONE (13:00)
[2019-11-19 13:15] LABS: Basophils # (Auto) 0.1 K/mm3 (0.0-0.1); Basophils % (Auto) 0.8 % (0.0-1.8); Eosinophils # (Auto) 0.2 K/mm3 (0.0-0.4); Eosinophils % (Auto) 2.1 % (0.0-4.3); Hematocrit 38.4 % (35.5-45.6); Hemoglobin 12.5 gm/dl (11.8-15.2); Lymphocytes # (Auto) 1.1 K/mm3 (1.2-5.4); Mean Corpuscular HGB Conc 33 % (32-34); Mean Corpuscular Volume 97 fl (84-94); Monocytes % (Auto) 12.7 % (0.0-7.3); Platelet Count 196 K/mm3 (140-440); Red Blood Count 3.96 M/mm3 (3.65-5.03); Red Cell Distribution Width 19.8 % (13.2-15.2)
[2019-11-19] MEDS ORDERED: EPOETIN ALFA 20,000 UNIT/1 ML INJ IV PRN (13:37)
[2019-11-19] MEDS ORDERED: HEPARIN 10,000 UNITS/10 ML VIAL IV PRN (13:37)
[2019-11-19] MEDS ORDERED: SODIUM CHLORIDE 0.9% 100 ML IV PRN (13:37)
[2019-11-19] MEDS ORDERED: HEPARIN 10,000 UNIT/1 ML VIAL IV PRN (13:37)
[2019-11-19] MEDS: oxyCODONE /ACETAMINOPHEN 5-325MG TAB PO PRN (19:45)
[2019-11-19 20:08] LABS: Hepatitis B Surface Antigen Non-Reactive (Negative); Hepatitis C Virus Antibody Non-Reactive (NonReactive)
[2019-11-20] MEDS: oxyCODONE /ACETAMINOPHEN 5-325MG TAB PO PRN ×4 (02:58→20:59)
[2019-11-20] MEDS ORDERED: IBUPROFEN 600 MG TAB PO ONE (05:25)
[2019-11-20] MEDS: TORSEMIDE 100 MG TAB PO SCH (10:21)
[2019-11-20] MEDS: ASPIRIN EC 81 MG TAB PO SCH (10:21)
--- NOTE | 2019-11-20 11:45 | Progress Note ---
History Interval history: ESRD. Nephrology following. Continue strict I's/O, daily weight, monitor urine output every shift, avoid nephrotoxic agents, dialysis as per renal team. Acute gouty attack. Start Solu-Medrol IV daily. Volume overload. Dialysis as per renal team, monitor urine output every shift, strict I's/O, daily weight, supportive care Medical noncompliance. Patient counseled regarding noncompliance with dialysis. Patient informed of risk of worsening symptoms and even . Patient knowledges understanding instructions and reports that he will be more compliant with dialysis in the future Acute systolic heart failure. Etiology from volume overload from missed hemodialysis. Continue as above. Hyperkalemia. Resolved. Continue hemodialysis per nephrology. Hospitalist Physical - Constitutional Vitals: Temp Pulse Resp BP Pulse Ox 98.3 F 80 18 152/96 100 11/20/19 07:39 11/20/19 07:39 11/20/19 07:39 11/20/19 07:39 11/20/19 07:39 General appearance: Present: mild distress BACILIO score - Bacilio Score Age > 65: (0) No Aspirin use within the Past 7 Days: (1) Yes 3 or more CAD Risk Factors: (1) Yes 2 or more Angina events in past 24 hrs: (1) Yes Known CAD with more than 50% Stenosis: (1) Yes Elevated Cardiac Markers: (0) No ST Deviation Greater than 0.5mm: (0) No BACILIO Score: 4 Results - Labs CBC & Chem 7: 11/19/19 12:20 11/19/19 10:11 Labs: Laboratory Last Values WBC 7.8 K/mm3 (4.5-11.0) 11/19/19 12:20 RBC 3.96 M/mm3 (3.65-5.03) 11/19/19 12:20 Hgb 12.5 gm/dl (11.8-15.2) 11/19/19 12:20 Hct 38.4 % (35.5-45.6) 11/19/19 12:20 MCV 97 fl (84-94) H 11/19/19 12:20 MCH 32 pg (28-32) 11/19/19 12:20 MCHC 33 % (32-34) 11/19/19 12:20 RDW 19.8 % (13.2-15.2) H 11/19/19 12:20 Plt Count 196 K/mm3 (140-440) 11/19/19 12:20 Lymph % (Auto) 14.0 % (13.4-35.0) 11/19/19 12:20 [place] % (Auto) 12.7 % (0.0-7.3) H 11/19/19 12:20 Eos % (Auto) 2.1 % (0.0-4.3) 11/19/19 12:20 Baso % (Auto) 0.8 % (0.0-1.8) 11/19/19 12:20 Lymph # 1.1 K/mm3 (1.2-5.4) L 11/19/19 12:20 [place] # 1.0 K/mm3 (0.0-0.8) H 11/19/19 12:20 Eos # 0.2 K/mm3 (0.0-0.4) 11/19/19 12:20 Baso # 0.1 K/mm3 (0.0-0.1) 11/19/19 12:20 Seg Neutrophils % 70.4 % (40.0-70.0) H 11/19/19 12:20 Seg Neutrophils # 5.5 K/mm3 (1.8-7.7) 11/19/19 12:20 Sodium 138 mmol/L (137-145) 11/19/19 10:11 Potassium 5.6 mmol/L (3.6-5.0) H 11/19/19 10:11 Chloride 98.2 mmol/L (98-107) 11/19/19 10:11 Carbon Dioxide 22 mmol/L (22-30) 11/19/19 10:11 Anion Gap 23 mmol/L 11/19/19 10:11 BUN 86 mg/dL (9-20) H 11/19/19 10:11 Creatinine 12.9 mg/dL (0.8-1.5) H 11/19/19 10:11 Estimated GFR 5 ml/min 11/19/19 10:11 BUN/Creatinine Ratio 7 % 11/19/19 10:11 Glucose 142 mg/dL (75-100) H 11/19/19 10:11 Calcium 6.6 mg/dL (8.4-10.2) L 11/19/19 10:11 Hepatitis A IgM Ab Non-reactive (NonReactive) 11/19/19 18:48 Hep Bs Antigen Non-reactive (Negative) 11/19/19 18:48 Hep B Core IgM Ab Non-reactive (NonReactive) 11/19/19 18:48 Hepatitis C Antibody Non-reactive (NonReactive) 11/19/19 18:48 Solo/IV: IV Catheter Type [Right INT / Saline Lock Antecubital] Active Medications - Current Medications Current Medications: Generic Name Dose Route Start Last Admin Trade Name Freq PRN Reason Stop Dose Admin Acetaminophen 650 mg 11/19/19 12:00 11/20/19 05:40 Tylenol PO 650 mg Q4H PRN Administration Pain MILD(1-3)/Fever >100.5/VELASCO Aspirin 81 mg 11/20/19 10:00 11/20/19 10:21 Halfprin Ec PO 81 mg QDAY DENISHA Administration Epoetin Anthony 20,000 unit 11/19/19 13:37 Procrit IV CASSIA PRN hemodialysis Heparin Sodium (Porcine) 1,000 unit 11/19/19 13:37 Heparin 10,000 Units/10 Ml IV CASSIA PRN hemodialysis Heparin Sodium (Porcine) 5,000 unit 11/19/19 13:37 Heparin IV CASSIA PRN hemodialysis Hydralazine HCl 10 mg 11/19/19 12:28 Apresoline IV Q6H PRN SBP > 160 Sodium Chloride 100 mls @ 999 mls/hr 11/19/19 13:37 Nacl 0.9% IV CASSIA PRN Hypotension Ondansetron HCl 4 mg 11/19/19 12:00 Zofran IV Q8H PRN Nausea And Vomiting Oxycodone/Acetaminophen 1 tab 11/19/19 19:30 11/20/19 10:24 Percocet 5/325 PO 1 tab Q4H PRN Administration Moder Pain unrelieved by [place] Sodium Chloride 10 ml 11/19/19 22:00 11/20/19 10:21 Sodium Chloride Flush Syringe 10 Ml IV 10 ml BID DENISHA Administration Sodium Chloride 10 ml 11/19/19 12:00 Sodium Chloride Flush Syringe 10 Ml IV PRN PRN LINE FLUSH Torsemide 100 mg 11/20/19 10:00 11/20/19 10:21 Demadex PO 100 mg QDAY DENISHA Administration
--- NOTE | 2019-11-20 14:46 | Consultation ---
History of Present Illness - Reason for Consult end stage renal disease - History of Present Illness 59 y/o M with h/o ESRD, who dialyzes at [facility] in [place], with h/o non- compliance and multiple missed sessions leading to worsening fluid overload, presented to the ED secondary to worsening edema and dyspnea on exertion. Initial labs yesterday was also concerning for hyperkalemia, and patient was cassia lyzed, with removal of 3L UF. Tolerated treatment wee. Per patient, the reason he has missed multiple HD session is due to gout flares. Past History Past Medical History: ESRD, heart failure, hypertension Past Surgical History: Other (Left upper extremity AV fistula, pacemaker placement) Social history: . denies: smoking, alcohol abuse, prescription drug abuse Family history: diabetes, hypertension Medications and Allergies Allergies Allergy/AdvReac Type Severity Reaction Status Date / Time ibuprofen [From Motrin] Allergy Itching Verified 11/20/19 06:44 mushroom Allergy Hives Verified 11/20/19 06:44 shellfish derived Allergy Rash Verified 11/20/19 06:44 Home Medications Medication Instructions Recorded Confirmed Last Taken Type Aspirin [Adult Aspirin] 81 mg PO QDAY 09/13/19 11/19/19 Unknown History Torsemide [Demadex] 100 mg PO QDAY 09/13/19 11/19/19 Unknown History Amiodarone HCl [Amiodarone 100 MG 200 mg PO DAILY 11/19/19 11/19/19 Unknown History TAB] Venlafaxine HCl [Venlafaxine HCl 75 mg PO DAILY 11/19/19 11/19/19 Unknown History ER] carvediloL [Coreg] 12.5 mg PO BID 11/19/19 11/19/19 Unknown History Active Meds: Active Medications Acetaminophen (Tylenol) 650 mg PO Q4H PRN PRN Reason: Pain MILD(1-3)/Fever >100.5/VELASCO Last Admin: 11/20/19 05:40 Dose: 650 mg Documented by: Aspirin (Halfprin Ec) 81 mg PO QDAY [facility], [facility] Last Admin: 11/20/19 10:21 Dose: 81 mg Documented by: Epoetin Anthony (Procrit) 20,000 unit IV CASSIA PRN PRN Reason: hemodialysis Heparin Sodium (Porcine) (Heparin 10,000 Units/10 Ml) 1,000 unit IV CASSIA PRN PRN Reason: hemodialysis Heparin Sodium (Porcine) (Heparin) 5,000 unit IV CASSIA PRN PRN Reason: hemodialysis Hydralazine HCl (Apresoline) 10 mg IV Q6H PRN PRN Reason: SBP > 160 Sodium Chloride (Nacl 0.9%) 100 mls @ 999 mls/hr IV CASSIA PRN PRN Reason: Hypotension Methylprednisolone Sodium Succinate (Solu-Medrol) 40 mg IV DAILY [facility], [facility]1983 Ondansetron HCl (Zofran) 4 mg IV Q8H PRN PRN Reason: Nausea And Vomiting Oxycodone/Acetaminophen (Percocet 5/325) 1 tab PO Q4H PRN PRN Reason: Moder Pain unrelieved by [place] Last Admin: 11/20/19 10:24 Dose: 1 tab Documented by: Sodium Chloride (Sodium Chloride Flush Syringe 10 Ml) 10 ml IV BID [facility], [facility] Last Admin: 11/20/19 10:21 Dose: 10 ml Documented by: Sodium Chloride (Sodium Chloride Flush Syringe 10 Ml) 10 ml IV PRN PRN PRN Reason: LINE FLUSH Torsemide (Demadex) 100 mg PO QDAY [facility], [facility] Last Admin: 11/20/19 10:21 Dose: 100 mg Documented by: Review of Systems Constitutional: weight gain, fatigue, weakness Cardiovascular: orthopnea, dyspnea on exertion Exam - Vital Signs Vital signs: Vital Signs Temp Pulse Resp BP Pulse Ox 97.9 F 71 20 148/100 100 11/19/19 08:35 11/19/19 08:35 11/19/19 08:35 11/19/19 08:35 11/19/19 08:35 - General Appearance General appearance: well-developed, well-nourished EENT: ATNC, mucous membranes moist Neck: Present: neck supple Respiratory: Clear to Ascultation Heart: regular, S1S2 Gastrointestinal: Present: normal Integumentary: no rash Neurologic: no focal deficit Musculoskeletal: Present: deferred Psychiatric: cooperative Results - Lab Results 11/19/19 12:20 11/19/19 10:11 Most recent lab results Calcium 6.6 mg/dL (8.4-10.2) L 11/19/19 10:11 Assessment and Plan - Patient Problems (1) End stage renal disease Current Visit: Yes Status: Chronic Plan to address problem: Patient STAT HD session yesterday. Will now place on maintenance TTS HD schedule as inpatient. (2) Fluid overload Current Visit: Yes Status: Acute Plan to address problem: Counseled patient on the importance of compliance with dialysis treatments along with appropriate fluid and salt restrictions. (3) Hyperkalemia Current Visit: Yes Status: Acute Plan to address problem: Will correct with HD. Counseled on low potassium diet and further emphasized the importance of compliance with his dialysis treatments. (4) Gout attack Current Visit: Yes Status: Acute Plan to address problem: Patient started on IV solumedrol for acute flare. He has also received dose of colchicine as inpatient. (5) Hypertensive chronic kidney disease with stage 5 chronic kidney disease or end stage renal disease Current Visit: No Status: Chronic Plan to address problem: Monitor blood pressure with current regimen. (6) Secondary hyperparathyroidism (of renal origin) Current Visit: No Status: Chronic Plan to address problem: Continue home phosphate binder regimen. (7) Anemia in CKD (chronic kidney disease) Current Visit: No Status: Chronic Qualifiers: Chronic kidney disease stage: on chronic dialysis Qualified Code(s): N18.6 - End stage renal disease; D63.1 - Anemia in chronic kidney disease; Z99.2 - Dependence on renal dialysis Plan to address problem: Based on most recent H/H levels, there is no acute indication for MARGE with HD therapy. Will monitor.
[2019-11-21] MEDS: oxyCODONE /ACETAMINOPHEN 5-325MG TAB PO PRN ×3 (00:59→13:11)
[2019-11-21] MEDS ORDERED: SODIUM CHLORIDE 0.9% 100 ML IV PRN (09:02)
[2019-11-21] MEDS ORDERED: methylPREDNISolone Sod Succinate 40 MG/1 ML INJ IV SCH ×2 (10:00→12:00)
[2019-11-21] MEDS ORDERED: SODIUM CHLORIDE*PRIMING MACHINE ONLY FOR DIALYSIS MC ONE (11:40)
--- NOTE | 2019-11-21 12:48 | Progress Note ---
Assessment and Plan - Patient Problems (1) End stage renal disease Current Visit: Yes Status: Chronic Plan to address problem: Patient STAT HD session on Wednesday Will now place on maintenance TTS HD schedule as inpatient. From nephrology standpoint patient is stable for discharge today after HD session. (2) Fluid overload Current Visit: Yes Status: Acute Plan to address problem: Counseled patient on the importance of compliance with dialysis treatments along with appropriate fluid and salt restrictions. (3) Hyperkalemia Current Visit: Yes Status: Acute Plan to address problem: Will correct with HD. Counseled on low potassium diet and further emphasized the importance of compliance with his dialysis treatments. (4) Gout attack Current Visit: Yes Status: Acute Plan to address problem: Patient started on IV solumedrol for acute flare. He has also received dose of colchicine as inpatient. (5) Hypertensive chronic kidney disease with stage 5 chronic kidney disease or end stage renal disease Current Visit: No Status: Chronic Plan to address problem: Monitor blood pressure with current regimen. (6) Secondary hyperparathyroidism (of renal origin) Current Visit: No Status: Chronic Plan to address problem: Continue home phosphate binder regimen. (7) Anemia in CKD (chronic kidney disease) Current Visit: No Status: Chronic Qualifiers: Chronic kidney disease stage: on chronic dialysis Qualified Code(s): N18.6 - End stage renal disease; D63.1 - Anemia in chronic kidney disease; Z99.2 - Dependence on renal dialysis Plan to address problem: Based on most recent H/H levels, there is no acute indication for MARGE with HD therapy. Will monitor. Subjective Date of service: 11/21/19 Interval history: Seen in the HD unit, tolerating session well, with goal UF 2L. Blood pressures stable. Objective - Vital Signs Vital signs: Vital Signs - 12hr 11/21/19 11/21/19 11/21/19 03:53 03:54 07:38 Temperature 98.6 F 98.0 F Pulse Rate 81 80 Respiratory 20 20 Rate Blood Pressure 152/101 154/103 157/103 O2 Sat by Pulse 98 95 Oximetry 11/21/19 11/21/19 11/21/19 09:30 09:45 09:54 Temperature 98.0 F Pulse Rate 78 76 Respiratory 18 Rate Blood Pressure 151/101 148/99 O2 Sat by Pulse 95 Oximetry 11/21/19 11/21/19 11/21/19 10:00 10:15 10:30 Temperature Pulse Rate 77 79 79 Respiratory Rate Blood Pressure 148/86 145/96 147/88 O2 Sat by Pulse Oximetry 11/21/19 11/21/19 10:45 11:00 Temperature Pulse Rate 78 75 Respiratory Rate Blood Pressure 146/97 144/96 O2 Sat by Pulse Oximetry - General Appearance General appearance: well-developed, well-nourished, appears stated age EENT: ATNC, PERRL Neck: no thyromegaly Respiratory: Present: Clear to Ascultation Cardiology: regular, S1S2 Gastrointestinal: normal Integumentary: warm and dry Neurologic: no focal deficit Musculoskeletal: deferred Psychiatric: mood/affect appropriate - Lab 11/19/19 12:20 11/19/19 10:11 Most recent lab results Calcium 6.6 mg/dL (8.4-10.2) L 11/19/19 10:11 - Allied health notes Allied health notes reviewed: nursing Medications & Allergies - Medications Allergies/Adverse Reactions: Allergies ibuprofen [From Motrin] Allergy (Verified 11/20/19 06:44) Itching mushroom Allergy (Verified 11/20/19 06:44) Hives shellfish derived Allergy (Verified 11/20/19 06:44) Rash Home Medications: Home Medications Medication Instructions Recorded Confirmed Last Taken Type Aspirin [Adult Aspirin] 81 mg PO QDAY 09/13/19 11/19/19 Unknown History Torsemide [Demadex] 100 mg PO QDAY 09/13/19 11/19/19 Unknown History Amiodarone HCl [Amiodarone 100 MG 200 mg PO DAILY 11/19/19 11/19/19 Unknown History TAB] Venlafaxine HCl [Venlafaxine HCl 75 mg PO DAILY 11/19/19 11/19/19 Unknown History ER] carvediloL [Coreg] 12.5 mg PO BID 11/19/19 11/19/19 Unknown History Active Medications: Generic Name Dose Route Start Last Admin Trade Name Freq PRN Reason Stop Dose Admin Acetaminophen 650 mg 11/19/19 12:00 11/20/19 05:40 Tylenol PO 650 mg Q4H PRN Administration Pain MILD(1-3)/Fever >100.5/VELASCO Aspirin 81 mg 11/20/19 10:00 11/20/19 10:21 Halfprin Ec PO 81 mg QDAY DENISHA Administration Epoetin Anthony 20,000 unit 11/19/19 13:37 Procrit IV CASSIA PRN hemodialysis Heparin Sodium (Porcine) 1,000 unit 11/19/19 13:37 Heparin 10,000 Units/10 Ml IV CASSIA PRN hemodialysis Heparin Sodium (Porcine) 5,000 unit 11/19/19 13:37 Heparin IV CASSIA PRN hemodialysis Hydralazine HCl 10 mg 11/19/19 12:28 Apresoline IV Q6H PRN SBP > 160 Sodium Chloride 100 mls @ 999 mls/hr 11/21/19 09:02 Nacl 0.9% IV CASSIA PRN Hypotension Methylprednisolone Sodium Succinate 40 mg 11/21/19 12:00 Solu-Medrol IV Q8H DENISHA Ondansetron HCl 4 mg 11/19/19 12:00 Zofran IV Q8H PRN Nausea And Vomiting Oxycodone/Acetaminophen 1 tab 11/19/19 19:30 11/21/19 08:59 Percocet 5/325 PO 1 tab Q4H PRN Administration Moder Pain unrelieved by [place] Sodium Chloride 10 ml 11/19/19 22:00 11/21/19 01:00 Sodium Chloride Flush Syringe 10 Ml IV 10 ml BID DENISHA Administration Sodium Chloride 10 ml 11/19/19 12:00 Sodium Chloride Flush Syringe 10 Ml IV PRN PRN LINE FLUSH Torsemide 100 mg 11/20/19 10:00 11/20/19 10:21 Demadex PO 100 mg QDAY DENISHA Administration
[2019-11-21] MEDS: ASPIRIN EC 81 MG TAB PO SCH (13:11)
[2019-11-21] MEDS: TORSEMIDE 100 MG TAB PO SCH (13:11)
[2019-11-21 14:02] VITALS: BP 150/70
--- NOTE | 2019-11-21 14:54 | Discharge Summary ---
Providers - Providers Date of Admission: 11/21/19 08:18 Date of discharge: 11/21/19 Attending physician: ALPESH SAGE 11/19/19 11:52 Consult to Physician [CONS] Stat Comment: DR SUMI MILES W/DR ZHU @[id number] Consulting Provider: ELÍAS ZHU Physician Instructions: Reason For Exam: ESRD on HD hyperkalemia dyspnea Hospitalization Condition: Fair Hospital course: 59 YO Male with ESRD on HD(T,R,Sa) was last dialyzed on , CHF, HTN, AR, Gout presented to ED for evaluation. Patient states that he has experienced lower extremity edema, and pain in the joints of his feet over the past 2 weeks with worsening symptoms over the past 2 days. Patient acknowledges noncompliance with dialysis due to his bilateral foot pain which resulted in patient missing his Wednesday dialysis session. Patient also reports that he has experienced shortness of breath over the past 2 days. Patient transported to [facility] via private vehicle for further evaluation and care. Patient seen and evaluated in the emergency department. Patient found to have symptoms consistent with acute gout, as well as end-stage renal disease, fluid overload due to missed dialysis and hyperkalemia . Patient placed in observation status. he was seen by Nephrology and dialysis done 2 days in a row. For acute gout was given steroids. he felt better and was discharged home on 11/21/2019. ESRD. Nephrology following. Continue strict I's/O, daily weight, monitor urine output every shift, avoid nephrotoxic agents, dialysis as per renal team. Acute gouty arthritis. Started Solu-Medrol IV and sent home on oral Prednisone for few days Volume overload. Dialysis done per nephrology Hyperkalemia resolved after dialysis Medical noncompliance. Patient counseled regarding noncompliance with dialysis. Patient informed of risk of worsening symptoms and even . Patient knowledges understanding instructions and reports that he will be more compliant with dialysis in the future Acute on chronic systolic heart failure. Etiology from volume overload from missed hemodialysis. Continue as above. Hyperkalemia. Resolved. Continue hemodialysis per nephrology. Total time spent on discharge, 33 mins Disposition: TO HOME OR SELFCARE Core Measure Documentation - Palliative Care Palliative Care/ Comfort Measures: Not Applicable - Core Measures Any of the following diagnoses?: heart failure - Heart Failure Discharge Requirements NIKITA/ARB for LVSD if EF <40%: No Reason for no NIKITA/ARB: Hyperkalemia Beta hilario at discharge: Yes Exam - Constitutional Vitals: Temp Pulse Resp BP Pulse Ox 98.2 F 76 18 150/70 95 11/21/19 12:45 11/21/19 12:45 11/21/19 12:45 11/21/19 12:45 11/21/19 09:54 Plan Activity: advance as tolerated Diet: low fat, low cholesterol, low salt, renal Plan of Treatment: 1.Follow up with PCP in 1 week. 2.Continue routine hemodialysis as scheduled. Follow up with: CHERI ZHOU MD [Other] - 7 Days Forms: AMA Form Prescriptions: predniSONE [Deltasone] 40 mg PO QDAY 5 Days #10 tab
== END 2019-11-21 16:00 | disposition home or self-care (01) | DRG 291 ==
LOC: ED 08:24 → 4A 12:00 → OBSVTOIN 11-21 08:18
PROVIDERS: ADMIT Internal Medicine; ATTEND Internal Medicine
DX: I13.2 Hypertensive heart and chronic kidney disease with heart failure and with stage 5 chronic kidney disease, or end stage renal disease (principal); N18.6 End stage renal disease; I50.23 Acute on chronic systolic (congestive) heart failure; M10.9 Gout, unspecified; E87.70 Fluid overload, unspecified; E87.5 Hyperkalemia; I25.2 Old myocardial infarction; Z79.899 Other long term (current) drug therapy; Z79.82 Long term (current) use of aspirin; Z99.2 Dependence on renal dialysis; Z91.013 Allergy to seafood; Z88.8 Allergy status to other drugs, medicaments and biological substances; Z91.018 Allergy to other foods
CPT/HCPCS: 36415; 71045; 80048; 80074; 84132; 85025; 93005; 93010; 99406; G0378; J0360; J0610; J2920; J7030

== ENCOUNTER 2020-06-17 19:05 | Inpatient (IN) | payer MEDICARE ==
--- NOTE | 2020-06-17 20:14 | Emergency Department Report ---
Blank Doc - Documentation Documentation: 59-year-old male that presents with chest pain and SOB. This initial assessment/diagnostic orders/clinical plan/treatment(s) is/are subject to change based on patient's health status, clinical progression and re- assessment by fellow clinical providers in the ED. Further treatment and workup at subsequent clinical providers discretion. Patient/guardians urged not to elope from the ED as their condition may be serious if not clinically assessed and managed. Initial orders include: 1- Patient sent to MAIN ED for further evaluation and treatment 2- cardiac workup
[2020-06-17 21:16] LABS: INR 1.37 (0.87-1.13)
[2020-06-17 21:18] LABS: Partial Thromboplastin Time 32.6 Sec. (24.2-36.6)
[2020-06-17 21:20] LABS: Alanine Aminotransferase 51 units/L (7-56); Albumin 4.3 g/dL (3.9-5); Blood Urea Nitrogen 111 mg/dL (9-20); Calcium 8.1 mg/dL (8.4-10.2); Hemolysis Index 34
[2020-06-17 21:21] LABS: Hematocrit 36.4 % (35.5-45.6); Hemoglobin 12.1 gm/dl (11.8-15.2); Mean Corpuscular HGB Conc 33 % (32-34); Mean Corpuscular Volume 110 fl (84-94); Platelet Count 102 K/mm3 (140-440); Red Blood Count 3.31 M/mm3 (3.65-5.03); Red Cell Distribution Width 18.2 % (13.2-15.2)
[2020-06-17 21:25] LABS: BUN/Creatinine Ratio 8
--- NOTE | 2020-06-17 22:04 | XRay Report ---
CHEST 2 VIEWS INDICATION / CLINICAL INFORMATION: Chest Pain. COMPARISON: 01/11/2020 FINDINGS: SUPPORT DEVICES: Unchanged. HEART / MEDIASTINUM: Stable. LUNGS / PLEURA: Persistent central pulmonary vascular congestion. No confluent infiltrates or overt p ulmonary edema. No pneumothorax. ADDITIONAL FINDINGS: No significant additional findings. IMPRESSION: 1. No significant interval change since prior exam dated 01/11/2020. Signer Name: Negro Cardoso MD Signed: 06/17/2020 9:59 PM Workstation Name: [id number]
[2020-06-17 22:07] LABS: Chol/HDL Ratio 2.06 %; HDL Cholesterol 50 mg/dL (40-59); LDL Cholesterol,Direct 39 mg/dL (50-130)
--- NOTE | 2020-06-17 22:45 | Emergency Department Report ---
ED Chest Pain HPI - General Chief Complaint: Chest Pain Stated Complaint: SHAKING, LEFT ARM PAIN, DIALYSIS TREATMENT Time Seen by Provider: 06/17/20 20:13 Source: patient Mode of arrival: Wheelchair Limitations: No Limitations - History of Present Illness Initial Comments: This is a 59-year-old -Pak[place] male presents to the emergency department from home with multiple complaints. The patient complains of severe shaking that has been going on for the past few weeks. He says that he was previously seen at [facility] 2 times for this but he was told "they do not know what is causing it and they sent me home." Patient says that the shaking is associated with some weakness and he is no longer able to stand or ambulate as he will fall. During the second visit with [place] the patient also says that he had an SC and subsequent cardiac catheterization with stent placement. 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 Patient complains of left-sided chest pain, as well as generalized pain. He feels that the chest pain is radiating to the left arm. It is associated with some shortness of breath. He denies any fever, nausea, vomiting or diaphoresis. He has not taken anything for symptoms prior to presentation. He has a past medical history of CHF, coronary artery disease, hypertension, AICD in place, end-stage renal disease on hemodialysis on Wednesday/Wednesday/Wednesday. His primary care physician is Dr. Brandi Ha. He says that he does not have a museum technician yet but "I am supposed to get one from [place]." He does not know the name of his chemical engineering intern and says that he gets dialyzed near here on [facility]. - Related Data Home Medications Medication Instructions Recorded Confirmed Last Taken Aspirin [Adult Aspirin] 81 mg PO QDAY 09/13/19 11/19/19 Unknown Torsemide [Demadex] 100 mg PO QDAY 09/13/19 11/19/19 Unknown Amiodarone HCl [Amiodarone 100 MG 200 mg PO DAILY 11/19/19 11/19/19 Unknown TAB] Venlafaxine HCl [Venlafaxine HCl 75 mg PO DAILY 11/19/19 11/19/19 Unknown ER] carvediloL [Coreg] 12.5 mg PO BID 11/19/19 11/19/19 Unknown Previous Rx's Medication Instructions Recorded Last Taken Type predniSONE [Deltasone] 40 mg PO QDAY 5 Days #10 tab 11/21/19 Unknown Rx Allergies Allergy/AdvReac Type Severity Reaction Status Date / Time ibuprofen [From Motrin] Allergy Itching Verified 01/11/20 14:34 mushroom Allergy Hives Verified 01/11/20 14:34 shellfish derived Allergy Rash Verified 01/11/20 14:34 Heart Score - HEART Score History: Slightly suspicious EKG: Non-specific Age: 45-65 Risk factors: > 3 risk factors or hx of atherosclerotic disease Troponin: > 3x normal limit HEART Score: 6 - Critical Actions Critical Actions: 4-6 pts:12-16.6% risk of adverse cardiac event. Should be admitted ED Review of Systems ROS: Stated complaint: SHAKING, LEFT ARM PAIN, DIALYSIS TREATMENT Other details as noted in HPI Comment: All other systems reviewed and negative Constitutional: denies: chills, fever Eyes: denies: eye pain, vision change ENT: denies: ear pain, throat pain Respiratory: shortness of breath. denies: cough Cardiovascular: chest pain. denies: palpitations Gastrointestinal: denies: abdominal pain, vomiting Genitourinary: denies: dysuria, discharge Musculoskeletal: myalgia. denies: joint swelling Skin: denies: rash, lesions Neurological: other (tremors/shaking). denies: headache ED Past Medical Hx - Past Medical History Previous Medical History?: Yes Hx Hypertension: Yes Hx Heart Attack/AMI: Yes Hx Congestive Heart Failure: Yes Hx Diabetes: No Hx Renal Disease: Yes (Dialysis T, Th, Wed) Hx Asthma: No Hx COPD: No Additional medical history: Pacemaker? Defibrillator, - Surgical History Additional Surgical History: Left upper extremity AV graft - Social History Smoking Status: Current Every Day Smoker - Medications Home Medications: Home Medications Medication Instructions Recorded Confirmed Last Taken Type Aspirin [Adult Aspirin] 81 mg PO QDAY 09/13/19 11/19/19 Unknown History Torsemide [Demadex] 100 mg PO QDAY 09/13/19 11/19/19 Unknown History Amiodarone HCl [Amiodarone 100 MG 200 mg PO DAILY 11/19/19 11/19/19 Unknown History TAB] Venlafaxine HCl [Venlafaxine HCl 75 mg PO DAILY 11/19/19 11/19/19 Unknown History ER] carvediloL [Coreg] 12.5 mg PO BID 11/19/19 11/19/19 Unknown History predniSONE [Deltasone] 40 mg PO QDAY 5 Days #10 tab 11/21/19 Unknown Rx ED Physical Exam - General Limitations: No Limitations - Other Other exam information: GENERAL: The patient is well-developed well-nourished. HENT: Normocephalic. Atraumatic. Patient has moist mucous membranes. EYES: Extraocular motions are intact. No nystagmus. NECK: Supple. Trachea is midline. CHEST/LUNGS: Clear to auscultation. There is no respiratory distress noted. HEART/CARDIOVASCULAR: Regular. There is no tachycardia. There is no murmur. ABDOMEN: Abdomen is soft, nontender. Patient has normal bowel sounds. There is no abdominal distention. SKIN: Skin is warm and dry. NEURO: Patient is very fatigued but is easily arousable. Once awake he is oriented, AAO x3. The patient is cooperative. Normal speech. Cranial nerves II through XII grossly intact. No tremor while the patient is sleeping but he begins having bilateral upper extremity tremors upon waking. MUSCULOSKELETAL: There is no tenderness or deformity. There is no limitation range of motion. ED Course Vital Signs 06/17/20 06/17/20 06/17/20 19:56 21:10 21:16 Temperature 98.4 F 97.9 F Pulse Rate 68 70 67 Respiratory 17 21 17 Rate Blood Pressure 121/71 107/63 Blood Pressure 132/69 [Left] O2 Sat by Pulse 99 98 Oximetry 06/17/20 06/17/20 06/17/20 21:34 21:46 22:00 Temperature Pulse Rate 70 68 69 Respiratory 22 19 20 Rate Blood Pressure 107/63 110/65 107/69 Blood Pressure [Left] O2 Sat by Pulse Oximetry 06/17/20 06/17/20 06/17/20 22:15 22:30 22:45 Temperature Pulse Rate 67 68 66 Respiratory 19 20 18 Rate Blood Pressure 111/67 102/65 106/69 Blood Pressure [Left] O2 Sat by Pulse Oximetry 06/17/20 06/17/20 06/18/20 23:00 23:50 00:00 Temperature Pulse Rate 68 69 68 Respiratory 20 16 17 Rate Blood Pressure 106/69 126/78 118/70 Blood Pressure [Left] O2 Sat by Pulse Oximetry 06/18/20 06/18/20 06/18/20 00:15 00:30 00:45 Temperature Pulse Rate 71 69 69 Respiratory 24 15 17 Rate Blood Pressure 109/75 118/70 121/74 Blood Pressure [Left] O2 Sat by Pulse Oximetry 06/18/20 06/18/20 06/18/20 01:00 01:15 01:30 Temperature Pulse Rate 70 72 78 Respiratory 18 19 12 Rate Blood Pressure 114/81 106/76 121/74 Blood Pressure [Left] O2 Sat by Pulse Oximetry 06/18/20 06/18/20 06/18/20 01:46 02:00 02:16 Temperature Pulse Rate 71 73 70 Respiratory 15 13 16 Rate Blood Pressure 101/77 101/77 116/80 Blood Pressure [Left] O2 Sat by Pulse Oximetry 06/18/20 06/18/20 06/18/20 02:30 02:46 03:00 Temperature Pulse Rate 71 68 67 Respiratory 14 18 14 Rate Blood Pressure 116/80 107/74 116/68 Blood Pressure [Left] O2 Sat by Pulse Oximetry - Reevaluation(s) Reevaluation #1: 06/18/20 03:36 Lab Results 06/17/20 06/17/20 06/17/20 Range/Units 20:30 20:30 20:30 WBC 7.5 (4.5-11.0) K/mm3 RBC 3.31 L (3.65-5.03) M/mm3 Hgb 12.1 (11.8-15.2) gm/dl Hct 36.4 (35.5-45.6) % MCV 110 H (84-94) fl MCH 37 H (28-32) pg MCHC 33 (32-34) % RDW 18.2 H (13.2-15.2) % Plt Count 102 L (140-440) K/mm3 Lymph % (Auto) Beef Pluck Trimmer [place] % (Auto) Beef Pluck Trimmer Eos % (Auto) Beef Pluck Trimmer Baso % (Auto) Beef Pluck Trimmer Lymph # (Auto) Beef Pluck Trimmer [place] # (Auto) Beef Pluck Trimmer Eos # (Auto) Beef Pluck Trimmer Baso # (Auto) Beef Pluck Trimmer Seg Neutrophils % Beef Pluck Trimmer Seg Neutrophils # Beef Pluck Trimmer PT 17.2 H (12.2-14.9) Sec. INR 1.37 H (0.87-1.13) APTT 32.6 (24.2-36.6) Sec. Sodium 141 (137-145) mmol/L Potassium 4.8 (3.6-5.0) mmol/L Chloride 93.9 L (98-107) mmol/L Carbon Dioxide 17 L (22-30) mmol/L Anion Gap 35 mmol/L BUN 111 H (9-20) mg/dL Creatinine 14.1 H (0.8-1.3) mg/dL Estimated GFR 4 ml/min BUN/Creatinine Ratio 8 % Glucose 105 H (75-100) mg/dL Calcium 8.1 L (8.4-10.2) mg/dL Total Bilirubin 0.60 (0.1-1.2) mg/dL AST 14 (5-40) units/L ALT 51 (7-56) units/L Alkaline Phosphatase 150 H (35-129) units/L Troponin T 0.351 H* (0.00-0.029) ng/mL NT-Pro-B Natriuret Pep > 78068 H (0-900) pg/mL Total Protein 6.7 (6.3-8.2) g/dL Albumin 4.3 (3.9-5) g/dL Albumin/Globulin Ratio 1.8 % Triglycerides 133 (2-149) mg/dL Cholesterol 103 (50-199) mg/dL LDL Cholesterol Direct 39 L (50-130) mg/dL HDL Cholesterol 50 (40-59) mg/dL Cholesterol/HDL Ratio 2.06 % 06/17/20 Range/Units 23:00 WBC (4.5-11.0) K/mm3 RBC (3.65-5.03) M/mm3 Hgb (11.8-15.2) gm/dl Hct (35.5-45.6) % MCV (84-94) fl MCH (28-32) pg MCHC (32-34) % RDW (13.2-15.2) % Plt Count (140-440) K/mm3 Lymph % (Auto) [place] % (Auto) Eos % (Auto) Baso % (Auto) Lymph # (Auto) [place] # (Auto) Eos # (Auto) Baso # (Auto) Seg Neutrophils % Seg Neutrophils # PT (12.2-14.9) Sec. INR (0.87-1.13) APTT (24.2-36.6) Sec. Sodium (137-145) mmol/L Potassium (3.6-5.0) mmol/L Chloride (98-107) mmol/L Carbon Dioxide (22-30) mmol/L Anion Gap mmol/L BUN (9-20) mg/dL Creatinine (0.8-1.3) mg/dL Estimated GFR ml/min BUN/Creatinine Ratio % Glucose (75-100) mg/dL Calcium (8.4-10.2) mg/dL Total Bilirubin (0.1-1.2) mg/dL AST (5-40) units/L ALT (7-56) units/L Alkaline Phosphatase (35-129) units/L Troponin T 0.355 H* (0.00-0.029) ng/mL NT-Pro-B Natriuret Pep (0-900) pg/mL Total Protein (6.3-8.2) g/dL Albumin (3.9-5) g/dL Albumin/Globulin Ratio % Triglycerides (2-149) mg/dL Cholesterol (50-199) mg/dL LDL Cholesterol Direct (50-130) mg/dL HDL Cholesterol (40-59) mg/dL Cholesterol/HDL Ratio % - Consultations Consultation #1: 06/17/20 23:49 I spoke with the museum technician on-call, Dr. Torres, regarding the patient's recent history of admission and alleged SC at [facility], his presentation today, his EKG, and his lab results including the elevated troponin levels. They will consult on the patient but he does not feel that heparin is necessary at this time. DARLENE score - Darlene Score Age > 65: (0) No Aspirin use within the Past 7 Days: (1) Yes 3 or more CAD Risk Factors: (1) Yes 2 or more Angina events in past 24 hrs: (1) Yes Known CAD with more than 50% Stenosis: (1) Yes Elevated Cardiac Markers: (1) Yes ST Deviation Greater than 0.5mm: (0) No DARLENE Score: 5 ED Medical Decision Making - Lab Data Result diagrams: 06/17/20 20:30 06/17/20 20:30 - EKG Data -: EKG Interpreted by Me EKG shows normal: sinus rhythm, axis (Left axis deviation), intervals (Prolonged HI interval), QRS complexes (IVCD, Q waves to the anteroseptal and inferior leads), ST-T waves Rate: normal - EKG Data When compared to previous EKG there are: changes noted (Q waves are now more pronounced than the EKG done in December of this year) Interpretation: other (Sinus rhythm at 66 bpm, PVCs, prolonged HI interval, IVCD, Q waves to the anteroseptal and inferior leads.) - Radiology Data Radiology results: report reviewed, image reviewed interpreted by me: Chest x-ray does not show any pneumonia, pleural effusions, pneumothorax. CT head without contrast INDICATION : Headache. TECHNIQUE: Axial imaging performed from the skull apex through the skull base without the use of contrast. All CT examinations performed at this facility utilize dose modulation, iterative reconstruction or weight-based dosing, when appropriate, to reduce radiation dose to as low as reasonably achievable. COMPARISON: None FINDINGS: No acute intracranial hemorrhage or parenchymal abnormality. Ventricles are normal in size and appear symmetric. Soft tissues including the orbits appear normal. No acute osseous abnormality. Sinuses and mastoid air cells are clear. IMPRESSION: No acute abnormality. - Medical Decision Making This patient presents to the emergency department with a complaint of sh aking/tremors to the point that it is causing him generalized body pain and causing him to feel off balance. He also appears to express some generalized weakness and feels that he is unable to stand or ambulate. Patient says that he was having some chest pain and shortness of breath earlier that resolved upon presentation. A CT scan of the head without contrast was completed that did not show any bleed, shift, mass, ischemia, or any other acute process. Chest x-ray did not show any pneumonia, pleural effusions, pneumothorax, focal consolidation, or any other acute process. Patient's labs shows renal insufficiency consistent with his end-stage renal disease. The patient has elevated troponin levels. This may be secondary to his renal failure, but given his history of coronary artery disease and chest pain earlier in the day, it could also represent NSTEMI. Cardiology has been contacted and consulted, and heparin is not indicated at this time. Patient has a moderate to high heart and DARLENE score. The patient will be admitted to hospital for further evaluation, cardiology consult, physical therapy, and further evaluation and treatment. He was accepted for admission by the hospitalist, Dr. Jorge. Critical Care Time: No Critical care attestation.: If time is entered above; I have spent that time in minutes in the direct care of this critically ill patient, excluding procedure time. ED Disposition Clinical Impression: Generalized weakness, End stage renal disease, Elevated troponin, Shaking, Unstable gait Chest pain Qualifiers: Chest pain type: unspecified Qualified Code(s): R07.9 - Chest pain, unspecified Disposition: OP ADMIT IP TO THIS HOSP Is pt being admited?: Yes Condition: Serious Time of Disposition: 00:21
--- NOTE | 2020-06-17 23:57 | Cat Scan Report ---
CT head without contrast INDICATION : Headache. TECHNIQUE: Axial imaging performed from the skull apex through the skull base without the use of con trast. All CT examinations performed at this facility utilize dose modulation, iterative reconstruct ion or weight-based dosing, when appropriate, to reduce radiation dose to as low as reasonably achiev able. COMPARISON: None FINDINGS: No acute intracranial hemorrhage or parenchymal abnormality. Ventricles are normal in si ze and appear symmetric. Soft tissues including the orbits appear normal. No acute osseous abnorm ality. Sinuses and mastoid air cells are clear. IMPRESSION: No acute abnormality. Signer Name: Jaden Vinson MD Signed: 06/17/2020 11:52 PM Workstation Name: [id number]
[2020-06-18] MEDS ORDERED: ACETAMINOPHEN 325 MG TAB PO PRN (02:27)
[2020-06-18] MEDS ORDERED: ONDANSETRON 4 MG/2 ML INJ IV PRN (02:27)
--- NOTE | 2020-06-18 03:51 | History and Physical Report ---
History of Present Illness Date of examination: 06/18/20 Date of admission: 06/18/20 00:22 Chief complaint: CHEST PAIN History of present illness: 59 year old male presenting to ER with complaint of chest pain , tremor and weakness. The weakness makes patient fall down a lot and patient said he is unable to walk effectively because of weakness. There is no history of nausea or vomiting, no history of fever or chills but there is history of shortness of breath. Patient also complained of shaking of the body which has been investigated twice at [facility] without finding the cause, there is no history of dizziness or change in mental status. Past History Past Medical History: CAD, ESRD, heart failure, hypertension Past Surgical History: Other (PACE MAKER/DEFIBRILLATOR, LEFT A-V GRAFT) Social history: smoking Family history: no significant family history Medications and Allergies Allergies Allergy/AdvReac Type Severity Reaction Status Date / Time ibuprofen [From Motrin] Allergy Itching Verified 01/11/20 14:34 mushroom Allergy Hives Verified 01/11/20 14:34 shellfish derived Allergy Rash Verified 01/11/20 14:34 Home Medications Medication Instructions Recorded Confirmed Last Taken Type Aspirin [Adult Aspirin] 81 mg PO QDAY 09/13/19 11/19/19 Unknown History Torsemide [Demadex] 100 mg PO QDAY 09/13/19 11/19/19 Unknown History Amiodarone HCl [Amiodarone 100 MG 200 mg PO DAILY 11/19/19 11/19/19 Unknown History TAB] Venlafaxine HCl [Venlafaxine HCl 75 mg PO DAILY 11/19/19 11/19/19 Unknown History ER] carvediloL [Coreg] 12.5 mg PO BID 11/19/19 11/19/19 Unknown History predniSONE [Deltasone] 40 mg PO QDAY 5 Days #10 tab 11/21/19 Unknown Rx Active Meds: Active Medications Acetaminophen (Tylenol) 650 mg PO Q4H PRN PRN Reason: Fever >101 Ondansetron HCl (Zofran) 4 mg IV Q8H PRN PRN Reason: Nausea And Vomiting Review of Systems Constitutional: weakness, no fever, no chills, no sweats, no night sweats Eyes: bilateral: other (BILATERAL EYE SYMPTOMS) Cardiovascular: chest pain, shortness of breath, no palpitations, no rapid/irregular heart beat, no syncope, no lightheadedness Respiratory: shortness of breath, no cough, no congestion Gastrointestinal: no abdominal pain, no nausea, no vomiting Genitourinary Male: no hematuria Rectal: no pain Musculoskeletal: no neck stiffness, no neck pain, no low back pain Integumentary: no rash, no pruritis Neurological: weakness, tremors, no paralysis, no seizures, no syncope, no change in mentation, no confusion Psychiatric: no anxiety, no change in appetite, no depression Endocrine: no polydipsia, no polyuria, no nocturia, no palpatations Hematologic/Lymphatic: no easy bruising, no easy bleeding Allergic/Immunologic: no urticaria Exam - Constitutional Vitals: Temp Pulse Resp BP Pulse Ox 97.9 F 67 14 116/68 98 06/17/20 21:10 06/18/20 03:00 06/18/20 03:00 06/18/20 03:00 06/17/20 21:10 General appearance: Present: no acute distress - EENT Eyes: Present: PERRL, EOM intact ENT: hearing intact, clear oral mucosa - Neck Neck: Present: supple, normal ROM - Respiratory Respiratory effort: normal - Cardiovascular Rhythm: regular Heart Sounds: Present: S1 & S2. Absent: gallop, systolic murmur, diastolic murmur, click - Extremities Extremities: no ischemia, No edema Peripheral Pulses: within normal limits - Abdominal General gastrointestinal: Present: soft, non-tender, non-distended. Absent: tender, distended, rigid, mass Male genitourinary: Present: deferred - Rectal Rectal Exam: deferred - Integumentary Integumentary: Present: clear, warm, dry - Musculoskeletal Musculoskeletal: generalized weakness - Psychiatric Psychiatric: appropriate mood/affect HEART Score - HEART Score Risk factors: 1-2 risk factors Troponin: Troponin T 0.355 ng/mL (0.00-0.029) H* 06/17/20 23:00 Troponin: < normal limit - Critical Actions Critical Actions: 0-3 pts:0.9-1.7%risk of adverse cardiac event.Candidate for discharge Results - Labs CBC & Chem 7: 06/17/20 20:30 06/17/20 20:30 Labs: Laboratory Last Values WBC 7.5 K/mm3 (4.5-11.0) 06/17/20 20:30 RBC 3.31 M/mm3 (3.65-5.03) L 06/17/20 20:30 Hgb 12.1 gm/dl (11.8-15.2) 06/17/20 20:30 Hct 36.4 % (35.5-45.6) 06/17/20 20:30 MCV 110 fl (84-94) H 06/17/20 20:30 MCH 37 pg (28-32) H 06/17/20 20:30 MCHC 33 % (32-34) 06/17/20 20:30 RDW 18.2 % (13.2-15.2) H 06/17/20 20:30 Plt Count 102 K/mm3 (140-440) L 06/17/20 20:30 Lymph % (Auto) [employer] 06/17/20 20:30 [place] % (Auto) [employer] Teacher 06/17/20 20:30 Eos % (Auto) [employer] Teacher 06/17/20 20:30 Baso % (Auto) [employer] Teacher 06/17/20 20:30 Lymph # (Auto) [employer] Teacher 06/17/20 20:30 [place] # (Auto) [employer] Teacher 06/17/20 20:30 Eos # (Auto) [employer] Teacher 06/17/20 20:30 Baso # (Auto) [employer] Teacher 06/17/20 20:30 Seg Neutrophils % [employer] Teacher 06/17/20 20:30 Seg Neutrophils # [employer] Teacher 06/17/20 20:30 PT 17.2 Sec. (12.2-14.9) H 06/17/20 20:30 INR 1.37 (0.87-1.13) H 06/17/20 20:30 APTT 32.6 Sec. (24.2-36.6) 06/17/20 20:30 Sodium 141 mmol/L (137-145) 06/17/20 20:30 Potassium 4.8 mmol/L (3.6-5.0) 06/17/20 20:30 Chloride 93.9 mmol/L (98-107) L 06/17/20 20:30 Carbon Dioxide 17 mmol/L (22-30) L 06/17/20 20:30 Anion Gap 35 mmol/L 06/17/20 20:30 BUN 111 mg/dL (9-20) H 06/17/20 20:30 Creatinine 14.1 mg/dL (0.8-1.3) H 06/17/20 20:30 Estimated GFR 4 ml/min 06/17/20 20:30 BUN/Creatinine Ratio 8 % 06/17/20 20:30 Glucose 105 mg/dL (75-100) H 06/17/20 20:30 Calcium 8.1 mg/dL (8.4-10.2) L 06/17/20 20:30 Total Bilirubin 0.60 mg/dL (0.1-1.2) 06/17/20 20:30 AST 14 units/L (5-40) 06/17/20 20:30 ALT 51 units/L (7-56) 06/17/20 20:30 Alkaline Phosphatase 150 units/L (35-129) H 06/17/20 20:30 Troponin T 0.355 ng/mL (0.00-0.029) H* 06/17/20 23:00 NT-Pro-B Natriuret Pep > 40023 pg/mL (0-900) H 06/17/20 20:30 Total Protein 6.7 g/dL (6.3-8.2) 06/17/20 20:30 Albumin 4.3 g/dL (3.9-5) 06/17/20 20:30 Albumin/Globulin Ratio 1.8 % 06/17/20 20:30 Triglycerides 133 mg/dL (2-149) 06/17/20 20:30 Cholesterol 103 mg/dL (50-199) 06/17/20 20:30 LDL Cholesterol Direct 39 mg/dL (50-130) L 06/17/20 20:30 HDL Cholesterol 50 mg/dL (40-59) 06/17/20 20:30 Cholesterol/HDL Ratio 2.06 % 06/17/20 20:30 Assessment and Plan - Patient Problems (1) Weakness Current Visit: Yes Status: Acute Plan to address problem: PHYSICAL THERAPY (2) Chest pain Current Visit: Yes Status: Acute Plan to address problem: 1. CARDIOLOGY CONSULT 2. SERIAL CARDIAC ENZYME 3. NITROPASTE 4. ASPIRIN PO 5 OXYGEN BY N/CANNULA (3) End stage renal disease Current Visit: Yes Status: Chronic Plan to address problem: NEPHROLOGY CONSULT
[2020-06-18] MEDS ORDERED: SODIUM CHLORIDE 0.9% 100 ML IV PRN (08:37)
--- NOTE | 2020-06-18 08:50 | Consultation ---
History of Present Illness Consult date: 06/18/20 Requesting physician: RADHA VELEZ Consult reason: chest pain, elevated troponin History of present illness: Pt is a 59 y.o. AA male with a past medical hx of ESRD on HD, ICMP s/p ICD, and CAD s/p PCI 2018 who presented with complaints of chest pain and fatigue. Of note, pt is a poor historian, and thus some of the HPI to follow has been obtained from chart. At time of exam, pt states he came to hospital for dialysis. He denies chest pain or any additional complaints initially; however, he reported chest pain in the ER per documentation. Upon further elicitation, pt later states he has been having chest pain intermittently at night for several months. Pt describes substernal, non-radiating chest tightness, with each episode lasting a few min. No aggravating or relieving factors. Associated with SOB. Pt denies any additional cardiac complaints. Pt has a hx of non-compliance with HD and medications, leading to fluid overload. He was just discharged from [facility] on 06/13 after being treated as such. BNP > 35k this admission. CXR reveals significant pulmonary vascular congestion. 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 Echo 06/12/2020 - EF 15-20%; severe ; LV mildly dilated; LA mildly dilated; mod dilated RA; mildly dilated ascending aorta; trace AI; dilated IVC, elev RAP; trivial pericardial effusion; mod TR; grade 2 diastolic dysfxn; positive bubble study; bicuspid valve cannot be excluded; mild PI; mild MR; mod-severely reduce RV sys fxn; RVSP 35.3 mmHg; mod pleural effusion in lateral region. Past History Past Medical History: CAD, COPD, dialysis, ESRD, heart failure, hypertension, other (ischemic CMP, aortic stenosis) Past Surgical History: Other (ICD in situ, PCI 2018) Social history: smoking. denies: alcohol abuse Medications and Allergies Allergies Allergy/AdvReac Type Severity Reaction Status Date / Time ibuprofen [From Motrin] Allergy Itching Verified 01/11/20 14:34 mushroom Allergy Hives Verified 01/11/20 14:34 shellfish derived Allergy Rash Verified 01/11/20 14:34 Home Medications Medication Instructions Recorded Confirmed Last Taken Type Aspirin [Adult Aspirin] 81 mg PO QDAY 09/13/19 11/19/19 Unknown History Torsemide [Demadex] 100 mg PO QDAY 09/13/19 11/19/19 Unknown History Amiodarone HCl [Amiodarone 100 MG 200 mg PO DAILY 11/19/19 11/19/19 Unknown History TAB] Venlafaxine HCl [Venlafaxine HCl 75 mg PO DAILY 11/19/19 11/19/19 Unknown History ER] carvediloL [Coreg] 12.5 mg PO BID 11/19/19 11/19/19 Unknown History predniSONE [Deltasone] 40 mg PO QDAY 5 Days #10 tab 11/21/19 Unknown Rx Active Meds: Active Medications Acetaminophen (Tylenol) 650 mg PO Q4H PRN PRN Reason: Fever >101 Sodium Chloride (Nacl 0.9%) 100 mls @ 999 mls/hr IV CASSIA PRN PRN Reason: Hypotension Ondansetron HCl (Zofran) 4 mg IV Q8H PRN PRN Reason: Nausea And Vomiting Review of Systems Constitutional: fatigue, weakness, no fever, no chills Ears, nose, mouth and throat: no nasal congestion, no sore throat Cardiovascular: chest pain, shortness of breath, dyspnea on exertion, no orthopnea, no palpitations, no edema, no syncope, no lightheadedness, no paroxysmal nocturnal dyspnea, no claudication Respiratory: shortness of breath, dyspnea on exertion, no cough Gastrointestinal: no abdominal pain, no nausea, no vomiting, no diarrhea, no constipation Genitourinary Male: no dysuria, no flank pain Musculoskeletal: myalgias, no neck stiffness, no neck pain Integumentary: no rash, no wounds Neurological: no head injury, no paralysis, no weakness, no parathesias, no numbness, no tingling, no seizures, no syncope, no vertigo Endocrine: no cold intolerance, no heat intolerance, no polydipsia, no polyuria Hematologic/Lymphatic: no easy bruising, no easy bleeding Allergic/Immunologic: no urticaria Physical Examination Last Vital Signs Temp 97.4 F L 06/18/20 13:46 Pulse 60 06/18/20 13:46 Resp 18 06/18/20 13:46 BP 97/49 06/18/20 13:46 Pulse Ox 92 06/18/20 08:11 General appearance: no acute distress HEENT: Positive: EOMI, Normocephaly Neck: Positive: neck supple, trachea midline Cardiac: Positive: Reg Rate and Rhythm, S1/S2 Lungs: Positive: Rhonchi Neuro: Positive: Grossly Intact Abdomen: Positive: Soft, Active Bowel Sounds. Negative: Tender Skin: Negative: Rash Musculoskeletal: No Pain Extremities: Present: upper extr. pulses, lower extr. pulses, +1 Edema (BLE) Results 06/17/20 20:30 06/17/20 20:30 Cardiac Enzymes 06/17/20 Range/Units 20:30 AST 14 (5-40) units/L Coagulation 06/17/20 Range/Units 20:30 PT 17.2 H (12.2-14.9) Sec. INR 1.37 H (0.87-1.13) APTT 32.6 (24.2-36.6) Sec. Lipids 06/17/20 Range/Units 20:30 Triglycerides 133 (2-149) mg/dL Cholesterol 103 (50-199) mg/dL HDL Cholesterol 50 (40-59) mg/dL Cholesterol/HDL Ratio 2.06 % CBC 06/17/20 Range/Units 20:30 WBC 7.5 (4.5-11.0) K/mm3 RBC 3.31 L (3.65-5.03) M/mm3 Hgb 12.1 (11.8-15.2) gm/dl Hct 36.4 (35.5-45.6) % Plt Count 102 L (140-440) K/mm3 Lymph # (Auto) Brine Plant Operator [place] # (Auto) Brine Plant Operator Eos # (Auto) Brine Plant Operator Baso # (Auto) Brine Plant Operator Comprehensive Metabolic Panel 06/17/20 Range/Units 20:30 Sodium 141 (137-145) mmol/L Potassium 4.8 (3.6-5.0) mmol/L Chloride 93.9 L (98-107) mmol/L Carbon Dioxide 17 L (22-30) mmol/L BUN 111 H (9-20) mg/dL Creatinine 14.1 H (0.8-1.3) mg/dL Glucose 105 H (75-100) mg/dL Calcium 8.1 L (8.4-10.2) mg/dL AST 14 (5-40) units/L ALT 51 (7-56) units/L Alkaline Phosphatase 150 H (35-129) units/L Total Protein 6.7 (6.3-8.2) g/dL Albumin 4.3 (3.9-5) g/dL - Imaging and Cardiology Echo: report reviewed (06/12/2020 - EF 15-20%; severe ; LV mildly dilated; LA mildly dilated; mod dilated RA; mildly dilated ascending aorta; trace AI; dilated IVC, elev RAP; trivial pericardial effusion; mod TR; grade 2 diastolic dysfxn; positive bubble study; bicuspid valve cannot be excluded; mild PI; mild MR; mod-severely reduce RV sys fxn; RVSP 35.3 mmHg; mod pleural effusion in late ral region) EKG: report reviewed, image reviewed - EKG Interpretation EKG: no acute changes EKG interpretations - Telemetry EKG Rhythm: Sinus Rhythm - EKG Sinus rhythms and dysrhythmias: sinus rhythm Ventricular dysrhythmias: ventricular premature com AV and intraventricular conduction: 1 AV block QRS axis and voltage: left axis deviation Repolarization changes or abnormalities: nonspecific abnormality, ST segment, and/or T wave Myocardial infarction: anterior [place] (old age or i Assessment and Plan Suspect NSTEMI Type 2 in the setting of renal failure/vol overload. Volume optimization via HD. Will consider Lexiscan stress MPI when clinically stable. Continue bASA and statin. Resume home BB. Continue ACEi. Pt seen in conjunction with Dr. Cm Campbell, who agrees with the assessment and plan of care. - Patient Problems (1) Atypical chest pain Current Visit: Yes Status: Acute (2) NSTEMI (non-ST elevated myocardial infarction) Current Visit: Yes Status: Acute Plan to address problem: Type 2 - in the setting of renal failure/vol overload (3) ESRD on hemodialysis Current Visit: Yes Status: Chronic (4) Acute on chronic HFrEF (heart failure with reduced ejection fraction) Current Visit: Yes Status: Acute (5) Ischemic cardiomyopathy Current Visit: Yes Status: Chronic (6) ICD (implantable cardioverter-defibrillator) in place Current Visit: Yes Status: Chronic (7) Severe aortic stenosis Current Visit: Yes Status: Chronic (8) CAD (coronary artery disease) Current Visit: Yes Status: Chronic (9) Stented coronary artery Current Visit: Yes Status: Chronic Plan to address problem: S/p PCI 2017 (10) HTN (hypertension) Current Visit: Yes Status: Chronic (11) COPD (chronic obstructive pulmonary disease) Current Visit: Yes Status: Chronic (12) Medical non-compliance Current Visit: Yes Status: Chronic
[2020-06-18 09:09] LABS: Creatine Kinase MB 7.2 ng/mL (0.0-4.0)
[2020-06-18] MEDS ORDERED: ASPIRIN 81 MG TAB CHEW PO SCH (11:00)
--- NOTE | 2020-06-18 11:18 | Consultation ---
History of Present Illness - Reason for Consult Consult date: 06/18/20 end stage renal disease Requesting physician: NASIR WELLS - History of Present Illness this is a 59 yo AAM with h/o hypertension, CAD s/p PCI, CHF s/p AICD, ESRD, who dialyzes at [facility], with h/o non-compliance and multiple missed sessions leading to worsening fluid overload, presented to the ED with complaints of chest pain and tremor of the body. pt reportedly was seen at [place] for similar symptoms. labs showed elevated trop > 0.3 and proBNP > 35k and patient was admitted for further cardiac work up. CXR showed persistent central pulmonary venous congestion, unchanged from prior CXR, labs showed elevated BUN/Cr at 111/14mg/dl, renal consult is requested for management of ESRD/HD. pt states that his last Hd treatment was last Wednesday. 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 Past History Past Medical History: CAD, ESRD, heart failure, hypertension Past Surgical History: Other (PACE MAKER/DEFIBRILLATOR, LEFT A-V GRAFT) Social history: smoking Family history: no significant family history Medications and Allergies Allergies Allergy/AdvReac Type Severity Reaction Status Date / Time ibuprofen [From Motrin] Allergy Itching Verified 01/11/20 14:34 mushroom Allergy Hives Verified 01/11/20 14:34 shellfish derived Allergy Rash Verified 01/11/20 14:34 Home Medications Medication Instructions Recorded Confirmed Last Taken Type Aspirin [Adult Aspirin] 81 mg PO QDAY 09/13/19 11/19/19 Unknown History Torsemide [Demadex] 100 mg PO QDAY 09/13/19 11/19/19 Unknown History Amiodarone HCl [Amiodarone 100 MG 200 mg PO DAILY 11/19/19 11/19/19 Unknown History TAB] Venlafaxine HCl [Venlafaxine HCl 75 mg PO DAILY 11/19/19 11/19/19 Unknown History ER] carvediloL [Coreg] 12.5 mg PO BID 11/19/19 11/19/19 Unknown History predniSONE [Deltasone] 40 mg PO QDAY 5 Days #10 tab 11/21/19 Unknown Rx Active Meds: Active Medications Acetaminophen (Tylenol) 650 mg PO Q4H PRN PRN Reason: Fever >101 Amiodarone HCl (Cordarone) 200 mg PO BID [facility] Aspirin (Baby Aspirin) 81 mg PO QDAY [facility] Atorvastatin Calcium (Lipitor) 80 mg PO QHS [facility] Sodium Chloride (Nacl 0.9%) 100 mls @ 999 mls/hr IV CASSIA PRN PRN Reason: Hypotension Lisinopril (Zestril) 5 mg PO QDAY [facility] Ondansetron HCl (Zofran) 4 mg IV Q8H PRN PRN Reason: Nausea And Vomiting Review of Systems All systems: negative Constitutional: weakness, lethargy Cardiovascular: chest pain Neurological: tremors Exam - Vital Signs Vital signs: Vital Signs Temp Pulse Resp BP Pulse Ox 98.4 F 68 17 121/71 99 06/17/20 19:56 06/17/20 19:56 06/17/20 19:56 06/17/20 19:56 06/17/20 19:56 - General Appearance General appearance: well-developed, well-nourished, appears stated age EENT: ATNC, PERRL, mucous membranes moist Neck: Present: neck supple Respiratory: Clear to Ascultation Heart: regular, S1S2 Gastrointestinal: Present: normoactive bowel sounds Integumentary: no rash, other (no edema ) Neurologic: no focal deficit, alert and oriented x3, gait normal, CN 3-12 intact Psychiatric: mood/affect appropriate, cooperative Results - Lab Results 06/17/20 20:30 06/17/20 20:30 Most recent lab results Calcium 8.1 mg/dL (8.4-10.2) L 06/17/20 20:30 Assessment and Plan - Patient Problems (1) End stage renal disease Current Visit: Yes Status: Chronic Plan to address problem: HD arranged for today, cont TTS inpatient schedule (2) Elevated troponin Current Visit: Yes Status: Acute Plan to address problem: follow cardiology recommendations (3) Hypertensive chronic kidney disease with stage 5 chronic kidney disease or end stage renal disease Current Visit: No Status: Chronic Plan to address problem: monitor BP on current meds (4) Secondary hyperparathyroidism (of renal origin) Current Visit: No Status: Chronic (5) Metabolic acidosis Current Visit: No Status: Acute Plan to address problem: to be corrected with HD
[2020-06-18 12:15] LABS: Creatine Kinase MB 7.5 ng/mL (0.0-4.0)
[2020-06-18 13:48] VITALS: BP 97/49
[2020-06-18 14:46] LABS: Hepatitis B Surface Antigen Non-Reactive (Negative); Hepatitis C Virus Antibody Non-Reactive (NonReactive)
--- NOTE | 2020-06-18 17:53 | Progress Note ---
Assessment and Plan Assessment and plan: --Atypical chest pain; Serial cardiac enzymes, continue current cardiac medications Cardiology evaluation noted and appreciated, possible stress test Prior to discharge --Non-ST elevation MT, type II; In the setting of end-stage renal disease However patient has multiple risk factors coronary artery disease, CHF ICD Cardiomyopathy, need to rule out non-ST elevation MT Cardiology evaluation noted, possible stress test prior to discharge --Ischemic cardiomyopathy; Continue antifailure medications --ICD in situ; Supportive care Interrogation if needed --History of V. tach; Continue amiodarone and supportive care --ESRD on hemodialysis Nephrology following, HD per schedule Received HD today --DVT prophylaxis; Heparin renal dose --Full CODE STATUS We will closely monitor the patient and adjust management as needed Plan of care reviewed with the patient and his nurse Patient wants to go home, I discussed in detail patient's condition treatment plan Mainly positive cardiac enzymes, intermittent chest pain, cardiology evaluation Possible stress test prior to discharge explained to to him And encouraged him to stay back till the test is done Patient verbalized understanding Plan of care reviewed with the patient and his nurse Advance care 35 minutes History Interval history: Patient had hemodialysis today Has positive troponins x2 Cardiology evaluated the patient Planning to do stress test prior to discharge Patient feels slightly better wants to go home as he has some important business to take care of I discussed with him his cardiac enzymes And a cardiology recommendations of possible stress test prior to discharge Hospitalist Physical - Constitutional Vitals: Temp Pulse Resp BP Pulse Ox 97.4 F L 62 18 97/49 92 06/18/20 13:46 06/18/20 14:30 06/18/20 13:46 06/18/20 13:46 06/18/20 08:11 General appearance: Present: no acute distress, well-nourished - EENT Eyes: Present: PERRL, EOM intact - Neck Neck: Present: supple, normal ROM - Respiratory Respiratory effort: normal Respiratory: bilateral: diminished, negative: rales, rhonchi, wheezing - Cardiovascular Rhythm: regular Heart Sounds: Present: S1 & S2 - Extremities Extremities: no ischemia, No edema - Abdominal General gastrointestinal: soft, non-tender, non-distended, normal bowel sounds - Integumentary Integumentary: Present: clear, warm - Psychiatric Psychiatric: appropriate mood/affect, cooperative - Neurologic Neurologic: moves all extremities HEART Score - HEART Score EKG: Non-specific Age: 45-65 Risk factors: 1-2 risk factors Troponin: Troponin T 0.358 ng/mL (0.00-0.029) H* 06/18/20 10:30 Troponin: < normal limit - Critical Actions Critical Actions: 0-3 pts:0.9-1.7%risk of adverse cardiac event.Candidate for discharge Results - Labs CBC & Chem 7: 06/17/20 20:30 06/17/20 20:30 Labs: Laboratory Last Values WBC 7.5 K/mm3 (4.5-11.0) 06/17/20 20: RBC 3.31 M/mm3 (3.65-5.03) L 06/17/20 20:30 Hgb 12.1 gm/dl (11.8-15.2) 06/17/20 20:30 Hct 36.4 % (35.5-45.6) 06/17/20 20:30 MCV 110 fl (84-94) H 06/17/20 20:30 MCH 37 pg (28-32) H 06/17/20 20:30 MCHC 33 % (32-34) 06/17/20 20:30 RDW 18.2 % (13.2-15.2) H 06/17/20 20:30 Plt Count 102 K/mm3 (140-440) L 06/17/20 20:30 Lymph % (Auto) Group Teacher 06/17/20 20:30 [place] % (Auto) Group Teacher 06/17/20 20:30 Eos % (Auto) Group Teacher 06/17/20 20:30 Baso % (Auto) Group Teacher 06/17/20 20:30 Lymph # (Auto) Group Teacher 06/17/20 20:30 [place] # (Auto) Group Teacher 06/17/20 20:30 Eos # (Auto) Group Teacher 06/17/20 20:30 Baso # (Auto) Group Teacher 06/17/20 20:30 Seg Neutrophils % Group Teacher 06/17/20 20:30 Seg Neutrophils # Group Teacher 06/17/20 20:30 PT 17.2 Sec. (12.2-14.9) H 06/17/20 20:30 INR 1.37 (0.87-1.13) H 06/17/20 20:30 APTT 32.6 Sec. (24.2-36.6) 06/17/20 20:30 Sodium 141 mmol/L (137-145) 06/17/20 20:30 Potassium 4.8 mmol/L (3.6-5.0) 06/17/20 20: Chloride 93.9 mmol/L (98-107) L 06/17/20 20:30 Carbon Dioxide 17 mmol/L (22-30) L 06/17/20 20: Anion Gap 35 mmol/L 06/17/20 20: BUN 111 mg/dL (9-20) H 06/17/20 20:30 Creatinine 14.1 mg/dL (0.8-1.3) H 06/17/20 20:30 Estimated GFR 4 ml/min 06/17/20 20: BUN/Creatinine Ratio 8 % 06/17/20 20: Glucose 105 mg/dL (75-100) H 06/17/20 20:30 Calcium 8.1 mg/dL (8.4-10.2) L 06/17/20 20:30 Total Bilirubin 0.60 mg/dL (0.1-1.2) 06/17/20 20:30 AST 14 units/L (5-40) 06/17/20 20:30 ALT 51 units/L (7-56) 06/17/20 20:30 Alkaline Phosphatase 150 units/L (35-129) H 06/17/20 20:30 Total Creatine Kinase 103 units/L (55-170) 06/18/20 10:30 CK-MB (CK-2) 7.5 ng/mL (0.0-4.0) H 06/18/20 10:30 CK-MB (CK-2) Rel Index 7.2 (0-4) H 06/18/20 10:30 Troponin T 0.358 ng/mL (0.00-0.029) H* 06/18/20 10:30 NT-Pro-B Natriuret Pep > 64056 pg/mL (0-900) H 06/17/20 20:30 Total Protein 6.7 g/dL (6.3-8.2) 06/17/20 20:30 Albumin 4.3 g/dL (3.9-5) 06/17/20 20:30 Albumin/Globulin Ratio 1.8 % 06/17/20 20:30 Triglycerides 133 mg/dL (2-149) 06/17/20 20:30 Cholesterol 103 mg/dL (50-199) 06/17/20 20:30 LDL Cholesterol Direct 39 mg/dL (50-130) L 06/17/20 20:30 HDL Cholesterol 50 mg/dL (40-59) 06/17/20 20:30 Cholesterol/HDL Ratio 2.06 % 06/17/20 20:30 Hepatitis A IgM Ab Non-reactive (NonReactive) 06/18/20 14:01 Hep Bs Antigen Non-reactive (Negative) 06/18/20 14:01 Hep B Core IgM Ab Non-reactive (NonReactive) 06/18/20 14:01 Hepatitis C Antibody Non-reactive (NonReactive) 06/18/20 14:01 Solo/IV: Voiding Method Urinal Active Medications - Current Medications Current Medications: Generic Name Dose Route Start Last Admin Trade Name Freq PRN Reason Stop Dose Admin Acetaminophen 650 mg 06/18/20 02:27 06/18/20 11:55 Tylenol PO 650 mg Q4H PRN Administration Fever >101 Amiodarone HCl 200 mg 06/18/20 22:00 Cordarone PO BID [facility] Aspirin 81 mg 06/18/20 11:00 06/18/20 11:00 Baby Aspirin PO Not Given QDAY [facility] Atorvastatin Calcium 80 mg 06/18/20 22:00 Lipitor PO QHS [facility] Carvedilol 3.125 mg 06/18/20 22:00 Coreg PO BID [facility] Sodium Chloride 100 mls @ 999 mls/hr 06/18/20 08:37 Nacl 0.9% IV CASSIA PRN Hypotension Lisinopril 5 mg 06/19/20 10:00 Zestril PO QDAY [facility] Ondansetron HCl 4 mg 06/18/20 02:27 Zofran IV Q8H PRN Nausea And Vomiting
--- NOTE | 2020-06-18 19:07 | Discharge Summary ---
Providers - Providers Date of Admission: 06/18/20 15:07 Attending physician: BETZY CARTER 06/17/20 23:52 Consult to Cardiology [CONS] Routine Consulting Provider: RUIZ KINSEY Reason For Exam: elevated troponin, chest pain 06/18/20 02:23 Physical Therapy Evaluation and Treat [CONS] Routine Comment: Reason For Exam: WEAKNESS 06/18/20 04:42 Physical Therapy Evaluation and Treat [CONS] Routine Comment: Reason For Exam: WEAKNESS 06/18/20 08:15 Consult to Physician [CONS] Routine Comment: Consulting Provider: BRANDYN CARDENAS Physician Instructions: Reason For Exam: End-stage renal disease on hemodialysis Primary care physician: OPTICAL LABORATORY TECHNICIAN Hospitalization Condition: Serious Disposition: DC-07 LEFT AGAINST MED ADVICE Exam - Constitutional Vitals: Temp Pulse Resp BP Pulse Ox 97.4 F L 62 18 97/49 92 06/18/20 13:46 06/18/20 14:30 06/18/20 13:46 06/18/20 13:46 06/18/20 08:11 Plan Forms: AMA Form
[2020-06-18] MEDS ORDERED: carvediloL 3.125 MG TAB PO SCH (22:00)
[2020-06-18] MEDS ORDERED: AMIODARONE 200 MG TAB PO SCH (22:00)
[2020-06-19] MEDS ORDERED: LISINOPRIL 5 MG TAB PO SCH (10:00)
== END 2020-06-18 19:04 | disposition left against medical advice (07) | DRG 280 ==
LOC: ED 19:05 → 4A 06-18 00:22 → OBSVTOIN 06-18 15:07
PROVIDERS: ADMIT Internal Medicine; ATTEND Internal Medicine
PROC: 5A1D70Z Performance of Urinary Filtration, Intermittent, Less than 6 Hours Per Day (ICD-10-PCS; principal; 2020-06-18)
DX: I13.2 Hypertensive heart and chronic kidney disease with heart failure and with stage 5 chronic kidney disease, or end stage renal disease (principal); N18.6 End stage renal disease; I21.A1 Myocardial infarction type 2; I50.23 Acute on chronic systolic (congestive) heart failure; E87.2 Acidosis; N25.81 Secondary hyperparathyroidism of renal origin; I25.5 Ischemic cardiomyopathy; I25.10 Atherosclerotic heart disease of native coronary artery without angina pectoris; I35.0 Nonrheumatic aortic (valve) stenosis; J44.9 Chronic obstructive pulmonary disease, unspecified; F17.200 Nicotine dependence, unspecified, uncomplicated; I25.2 Old myocardial infarction; Z95.5 Presence of coronary angioplasty implant and graft; Z99.2 Dependence on renal dialysis; Z79.82 Long term (current) use of aspirin; Z88.6 Allergy status to analgesic agent; Z91.013 Allergy to seafood; Z91.018 Allergy to other foods; Z95.810 Presence of automatic (implantable) cardiac defibrillator; Z91.14 Patient's other noncompliance with medication regimen
CPT/HCPCS: 36415; 70450; 71046; 80053; 80061; 80074; 82550; 82553; 83880; 84484; 85025; 85610; 85730; 93005; G0378

== ENCOUNTER 2020-07-24 20:24 | Emergency (ER) | payer MEDICARE ==
[2020-07-24 21:51] VITALS: BP 105/78
[2020-07-24 22:24] LABS: Albumin 3.9 g/dL (3.9-5); Basophils # (Auto) 0.1 K/mm3 (0.0-0.1); Basophils % (Auto) 0.8 % (0.0-1.8); Calcium 9.2 mg/dL (8.4-10.2); Eosinophils # (Auto) 0.3 K/mm3 (0.0-0.4); Eosinophils % (Auto) 3.4 % (0.0-4.3); Hematocrit 34.7 % (35.5-45.6); Hemoglobin 11.2 gm/dl (11.8-15.2); Lymphocytes # (Auto) 1.2 K/mm3 (1.2-5.4); Lymphocytes % (Auto) 12.7 % (13.4-35.0); Mean Corpuscular HGB Conc 32 % (32-34); Mean Corpuscular Volume 107 fl (84-94); Monocytes % (Auto) 10.7 % (0.0-7.3); Platelet Count 260 K/mm3 (140-440); Red Blood Count 3.23 M/mm3 (3.65-5.03); Red Cell Distribution Width 17.9 % (13.2-15.2)
--- NOTE | 2020-07-25 00:15 | Emergency Department Report ---
ED General Adult HPI - General Chief complaint: Extremity Injury, Lower Stated complaint: MISSED DIALYSIS/SHINGLES/GOUT Time Seen by Provider: 07/25/20 00:00 Source: patient Mode of arrival: Ambulatory Limitations: No Limitations - History of Present Illness Initial comments: Patient is 59 years old female with history of end-stage renal disease on hemo dialysis, congestive heart failure with defibrillator. Patient presented to the emergency room stating that he missed 2 session of his dialysis this week. Patient stated that he does not have any transportation to dialysis center. Patient presented to the ER complaining of generalized body swelling and itching. Patient also complaining of bilateral foot pain stating that his gout is acting up. Patient denied any fever or chills. Patient is having shortness of breath however any chest pain. - Related Data Previous Rx's Medication Instructions Recorded Last Taken Type predniSONE [Deltasone] 40 mg PO QDAY 5 Days #10 tab 11/21/19 Unknown Rx Amiodarone [Cordarone 200 MG TAB] 200 mg PO DAILY #30 tablet 06/24/20 Unknown Rx Aspirin [Adult Aspirin] 81 mg PO QDAY #30 06/24/20 Unknown Rx AtorvaSTATin [Lipitor] 80 mg PO QHS #30 tablet 06/24/20 Unknown Rx Pantoprazole [Protonix TAB] 40 mg PO QDAC #30 tablet 06/24/20 Unknown Rx Torsemide [Demadex] 100 mg PO QDAY #30 06/24/20 Unknown Rx Venlafaxine Xr [Effexor XR] 75 mg PO QDAY #30 capsule 06/24/20 Unknown Rx carvediloL [Coreg] 3.125 mg PO BID #60 tablet 06/24/20 Unknown Rx Allergies Allergy/AdvReac Type Severity Reaction Status Date / Time ibuprofen [From Motrin] Allergy Itching Verified 01/11/20 14:34 mushroom Allergy Hives Verified 01/11/20 14:34 shellfish derived Allergy Rash Verified 01/11/20 14:34 ED Review of Systems ROS: Stated complaint: MISSED DIALYSIS/SHINGLES/GOUT Other details as noted in HPI Comment: All other systems reviewed and negative Constitutional: denies: chills, fever Respiratory: shortness of breath. denies: cough, orthopnea, wheezing Cardiovascular: denies: chest pain, palpitations Gastrointestinal: denies: abdominal pain, nausea, vomiting Musculoskeletal: denies: back pain Neurological: denies: headache, weakness, numbness, paresthesias, confusion ED Past Medical Hx - Past Medical History Previous Medical History?: Yes Hx Hypertension: Yes Hx Heart Attack/AMI: Yes Hx Congestive Heart Failure: Yes Hx Diabetes: No Hx Renal Disease: Yes (MWF) Hx Asthma: No Hx COPD: No Hx HIV: No Additional medical history: Pacemaker? Defibrillator, - Surgical History Additional Surgical History: Left upper extremity AV graft - Social History Smoking Status: Never Smoker Substance Use Type: None - Medications Home Medications: Home Medications Medication Instructions Recorded Confirmed Last Taken Type predniSONE [Deltasone] 40 mg PO QDAY 5 Days #10 tab 11/21/19 06/19/20 Unknown Rx Amiodarone [Cordarone 200 MG TAB] 200 mg PO DAILY #30 tablet 06/24/20 Unknown Rx Aspirin [Adult Aspirin] 81 mg PO QDAY #30 06/24/20 Unknown Rx AtorvaSTATin [Lipitor] 80 mg PO QHS #30 tablet 06/24/20 Unknown Rx Pantoprazole [Protonix TAB] 40 mg PO QDAC #30 tablet 06/24/20 Unknown Rx Torsemide [Demadex] 100 mg PO QDAY #30 06/24/20 Unknown Rx Venlafaxine Xr [Effexor XR] 75 mg PO QDAY #30 capsule 06/24/20 Unknown Rx carvediloL [Coreg] 3.125 mg PO BID #60 tablet 06/24/20 Unknown Rx ED Physical Exam - General Limitations: No Limitations General appearance: alert, in no apparent distress - Head Head exam: Present: atraumatic, normocephalic, normal inspection - Eye Eye exam: Present: normal appearance, PERRL - ENT ENT exam: Present: normal exam, normal orophraynx, mucous membranes moist - Neck Neck exam: Present: normal inspection, full ROM. Absent: tenderness, meningismus - Respiratory Respiratory exam: Present: normal lung sounds bilaterally - Cardiovascular Cardiovascular Exam: Present: regular rate, normal rhythm, normal heart sounds - GI/Abdominal GI/Abdominal exam: Present: soft, normal bowel sounds. Absent: distended, tenderness, guarding, rebound, rigid, organomegaly, mass, bruit, pulsatile mass, hernia - Extremities Exam Extremities exam: Present: normal inspection, full ROM, normal capillary refill. Absent: tenderness, pedal edema, joint swelling, calf tenderness - Back Exam Back exam: Present: normal inspection, full ROM. Absent: CVA tenderness (R), CVA tenderness (L) - Neurological Exam Neurological exam: Present: alert, oriented X3, CN II-XII intact - Psychiatric Psychiatric exam: Present: normal mood - Skin Skin exam: Present: warm, intact, normal color ED Course Vital Signs 07/24/20 21:28 Temperature 98.8 F Pulse Rate 79 Respiratory 18 Rate Blood Pressure 105/78 O2 Sat by Pulse 97 Oximetry ED Medical Decision Making - Lab Data Result diagrams: 07/24/20 21:47 07/24/20 21:47 - Radiology Data Radiology results: report reviewed - Medical Decision Making Patient is 59 years old female with history of end-stage renal disease on hemodi alysis, congestive heart failure with defibrillator. Patient presented to the emergency room stating that he missed 2 session of his dialysis this week. Patient stated that he does not have any transportation to dialysis center. Patient presented to the ER complaining of generalized body swelling and itching. Patient also complaining of bilateral foot pain stating that his gout is acting up. Patient denied any fever or chills. Patient is having shortness of breath however any chest pain. I discussed the patient with Dr. Castellon, associate field service engineer superintendent landfill operations. He advised to give the patient Kayexalate p.o. and patient can be discharged to follow-up with him in the clinic in the next 2 to 3 days. I informed the patient about the instruction by his associate field service engineer and also advised him to return to the ER if he develop any new symptoms. Critical care attestation.: If time is entered above; I have spent that time in minutes in the direct care of this critically ill patient, excluding procedure time. ED Disposition Clinical Impression: ESRD on hemodialysis, Itching, Gouty arthritis Disposition: DC-01 TO HOME OR SELFCARE Is pt being admited?: No Condition: Stable Instructions: End-Stage Kidney Disease Additional Instructions: Please follow-up with your dialysis clinic tomorrow. Referrals: PRIMARY CARE, [Referring] - 3-5 Days
[2020-07-25] MEDS ORDERED: SODIUM POLYSTYRENE 15 GM/60 ML ORAL LIQD PO ONE (00:21)
[2020-07-25] MEDS ORDERED: diphenhydrAMINE 50 MG/ML VIAL IM ONE (00:24)
[2020-07-25] MEDS ORDERED: MORPHINE 4 MG/1 ML INJ IM ONE (00:24)
== END 2020-07-25 02:00 | disposition home or self-care (01) ==
LOC: ED 20:24
DX: I13.2 Hypertensive heart and chronic kidney disease with heart failure and with stage 5 chronic kidney disease, or end stage renal disease (principal); N18.6 End stage renal disease; I50.9 Heart failure, unspecified; Z99.2 Dependence on renal dialysis; M10.9 Gout, unspecified; I25.2 Old myocardial infarction; Z79.899 Other long term (current) drug therapy; Z91.013 Allergy to seafood; Z88.8 Allergy status to other drugs, medicaments and biological substances
CPT/HCPCS: 36415; 80053; 85025; 96372; 99283; J1200; J2270